=== PATIENT | female | born 1965 | race Caucasian/White ===

== ENCOUNTER 2020-01-15 08:39 | Emergency (ER) | payer BC, SELFPAY ==
--- NOTE | ~2020-01-15 | XR_ITS ---
EXAMINATION: XR G tube evaluation w imaging DATE: 01/15/2020 10:08 INDICATION: Gastrostomy tube placement. TECHNIQUE: A supine view of the abdomen was obtained. COMPARISON: Abdomen radiographs 03/10/2019, CT abdomen and pelvis 11/03/2018 FINDINGS: There is gaseous distention of the sigmoid colon. The small bowel is normal in caliber. The re is a gastrostomy tube in expected position. There is contrast in the tube and in the stomach. IMPRESSION: 1. Gastrostomy tube in expected position. 2. Chronic versus recurrent gaseous distention of the sigmoid colon, consistent with adynamic ileus o r obstruction such as volvulus. Reviewed, dictated and finalized at location [facility]. IMPRESSION: 1. Gastrostomy tube in expected position. 2. Chronic versus recurrent gaseous distention of the sigmoid colon, consistent with adynamic ileus or obstruction such as volvulus.
[2020-01-15 08:55] VITALS: BP 158/109; PULSE 78; RESP 12; TEMP 36.4; O2SAT 99
--- NOTE | 2020-01-15 10:48 | PC.NURSE ---
Pt. family refusing ct scan and blood work and would like to be discharged. EDP aware.
--- NOTE | 2020-01-15 10:50 | ED.GENADULT ---
HPI - General Adult General Chief complaint: Unspecified Stated complaint: peg tube displacement Time Seen by Provider: 01/15/20 09:14 Source: family ( check) Mode of arrival: wheelchair Limitations: other ([place]'s disease) History of Present Illness HPI narrative: Patient presents via her with chief complaint of dislodged PEG tube that was noticed this morning by patient's caregiver. Patient has been reports that she has otherwise been taking feeds appropriately before this placement and has not had any abnormal symptoms. He states that she has come out abdominal bloating that is because she is due for enema today. Patient's is her POA and denies any other concerns. Related Data Allergies Allergy/AdvReac Type Severity Reaction Status Date / Time No Known Allergies Allergy Verified 09/18/19 09:12 Review of Systems Review of Systems: Narrative: CONSTITUTIONAL: Denies fever, chills, or sweats. EYES: Denies visual changes, redness, or discharge. ENT: Denies rhinorrhea, congestion, sore throat, or otalgia. CARDIOVASCULAR: Denies chest pain, palpitations, or edema. RESPIRATORY: Denies cough or dyspnea. GASTROINTESTINAL: PEG tube displacement denies abdominal pain, nausea, vomiting, or diarrhea. GENITOURINARY: Denies dysuria or hematuria. SKIN: Denies rash or itching. MUSCULOSKELETAL: Denies back pain, myalgia, or joint pain NEUROLOGIC: Denies headache, numbness, dizziness, or weakness. PSYCHIATRIC: Denies anxiety or depression. [facility] Past Medical History Medical History (Updated 01/15/20 @ 10:54 by Thom Williamson PA-C) History of [place]'s chorea Surgical History Surgical History History of endometrial ablation Family History Family History Mother Family history of [place]'s chorea Social History Social History Smoking status: Never smoker Second hand tobacco smoke exposure: No Alcohol intake: current Gender identity (if verbalized by the patient): Female Exam Narrative: Exam Narrative: GENERAL: Well groomed, well-nourished. HEAD: Normocephalic, atraumatic. EYES: PERRLA and EOMI. ENT: Nares clear, no rhinorrhea or epistaxis. Mucous membranes moist. Bilateral TMs pearly deleon nonbulging NECK: Supple. No adenopathy or masses. No vertebral tenderness or loss of ROM. CHEST: Clear to auscultation. No respiratory distress. No wheezes rales or rhonchi HEART: Regular rate and rhythm. Normal peripheral pulses. ABDOMEN: Soft, nontender, mild distention, hyperactive active bowel sounds in all quadrants. No bruises noted. EXTREMITIES: Bilateral upper extremities contracted. No acute changes in ROM. No edema. SKIN: Warm, dry, no rash. NEURO: Speech is not intelligible. alert and awake. Course Vital Signs Vital signs: Vital Signs Temperature 97.5 F L 01/15/20 08:55 Pulse Rate 78 01/15/20 08:55 Respiratory Rate 12 01/15/20 08:55 Blood Pressure 158/109 H 01/15/20 08:55 Pulse Oximetry 99 01/15/20 08:55 Temperature 97.5 F L 01/15/20 08:55 Pulse Rate 73 01/15/20 11:00 Respiratory Rate 18 01/15/20 11:00 Blood Pressure 156/97 H 01/15/20 11:00 Pulse Oximetry 99 01/15/20 11:00 Procedures Other Procedure Procedure 1: Other Procedure: PEG tube site and lower abdomen cleaned with chlorhexidine wipes. Lubrication applied to the PEG tube and it was inserted without resistance and balloon to be held in place. Patient tolerated procedure well. PEG tube taped in place to patient abdomen. Imaging obtained to confirm placement. Medical Decision Making MDM Narrative Medical decision making narrative: On patient's imaging to confirm PEG tube placement there was distention noted. Consulted with radiologist who recommends CT with contrast so he can compare to the CT per
[2020-01-15 11:00] VITALS: BP 156/97; PULSE 73; RESP 18; O2SAT 99
--- NOTE | 2020-01-15 11:02 | PC.NURSE ---
Pt. left against medical advice. EDP spoke with patient POA and they have no further questions.
== END 2020-01-15 11:02 | disposition left against medical advice (07) ==
PROVIDERS: Emergency Provider Emergency Medicine; PCP Family Medicine
DX: K94.23 Gastrostomy malfunction (principal); G10 Huntington's disease
CPT/HCPCS: 49465; 99284

== ENCOUNTER 2020-02-16 08:34 | Emergency (ER) | payer BC, SELFPAY ==
--- NOTE | ~2020-02-16 | CT_ITS ---
EXAMINATION: CT abdomen pelvis wo con DATE: 02/16/2020 10:28 INDICATION: Possible extravasation of contrast material following gastrostomy tube placement TECHNIQUE: Computed tomography (CT) of the abdomen and pelvis was performed without intravenous contr ast. Automated exposure control and iterative reconstruction technique were employed. Exam dose: 414 .27 mGy-cm total exam DLP. COMPARISON: 02/16/2020 KUB FINDINGS: Gastrostomy tube is situated within the body of the stomach and there is contrast material within the stomach and small bowel but no extravasation. Upon review of the earlier plain radiograph, the abdomen is missed marked and with left marker on the right side of the abdomen. Incidentally noted is a nonobstructing small left renal calculus. IMPRESSION: Satisfactory position of gastrostomy tube within stomach and no extravasated contrast ma terial Reviewed, dictated and finalized at [facility]. Reviewed, dictated and finalized at location A. ING CLERK IMPRESSION: Satisfactory position of gastrostomy tube within stomach and no ex travasated contrast material
--- NOTE | ~2020-02-16 | XR_ITS ---
XR G tube replacement w image DATE: 02/16/2020 09:38 INDICATION: Gastrostomy tube replacement TECHNIQUE: Portable supine AP exposure following injection of contrast material through a recently pl aced gastrostomy tube COMPARISON: 03/10/2019 KUB 01/15/2020 gastrostomy tube 11/04/2018 CT abdomen pelvis FINDINGS: Gastrostomy tube overlies the medial right upper abdomen. Radiopaque contrast material is n oted within the gastric lumen and duodenal lumen. There is however evidence of some apparent extravas ated contrast material in the medial right superior abdomen extending superior to the stomach and duo denum. IMPRESSION: Suggestion of extravasation of contrast material following gastrostomy tube placement Reviewed, dictated and finalized at [facility]. Reviewed, dictated and finalized at location A. ESIS NURSE IMPRESSION: Suggestion of extravasation of contrast material following gastrost ariela tube placement
[2020-02-16 08:40] VITALS: PULSE 76; RESP 20; TEMP 36.8; O2SAT 99
--- NOTE | 2020-02-16 09:59 | ED.GENADULT ---
HPI - General Adult General Chief complaint: Unspecified Stated complaint: Peg tube came out Time Seen by Provider: 02/16/20 08:56 History of Present Illness HPI narrative: Patient is a 54-year-old female who presents to the ER for feeding tube dislodgment. The fluid came out of the balloon and the tube was excellently pulled out 1/2 hours prior to arrival. No other complaints. Patient's has placed a bandage over the stoma. Placed several years ago and very mature. Related Data Allergies Allergy/AdvReac Type Severity Reaction Status Date / Time No Known Allergies Allergy Verified 02/16/20 08:44 Review of Systems Review of Systems: ROS unobtainable: Yes unobtainable due to medical condition PMFSH Past Medical History Medical History (Updated 02/16/20 @ 11:56 by Good Young MD) History of [place]'s chorea Surgical History Surgical History History of endometrial ablation Family History Family History Mother Family history of Molly's chorea Social History Social History Smoking status: Never smoker Second hand tobacco smoke exposure: No Alcohol intake: current Gender identity (if verbalized by the patient): Female Exam Narrative: Exam Narrative: GENERAL: Chronically ill-appearing, well-nourished, and in no acute distress. HEAD: Normocephalic, atraumatic. CHEST: Clear to auscultation. No respiratory distress. HEART: Regular rate and rhythm. Normal peripheral pulses. ABDOMEN: Soft, nontender, nondistended. Stoma site in left upper abdomen. EXTREMITIES: Contractures of the upper and lower extremities. NEURO: Patient awake and alert. Neurologic baseline. Chronic deficits from [place]'s chorea Course Reevaluation(s) Reevaluation #1: Discussed results with patient's and patient. Will obtain noncontrast CT scan to further evaluate extravasation of fluid. Patient's abdomen is soft and nontender and she is in no distress. Date: 02/16/20 Time: 10:00 Reevaluation #2: No extravasation of contrast. Contacted by radiology. Discharge home. Date: 02/16/20 Time: 11:54 Vital Signs Vital signs: Vital Signs Temperature 98.2 F 02/16/20 08:40 Pulse Rate 76 02/16/20 08:40 Respiratory Rate 20 02/16/20 08:40 Pulse Oximetry 99 02/16/20 08:40 Temperature 98.2 F 02/16/20 08:40 Pulse Rate 76 02/16/20 08:40 Respiratory Rate 20 02/16/20 08:40 Pulse Oximetry 99 02/16/20 08:40 Procedures Other Procedure Procedure 1: Other Procedure: G-tube placed at bedside 20 [employer] [employer] feeding tube could not passed through the stoma. A 16 [place] Kangaroo G-tube was able to pass. There was a area of scar tissue that has had to move through with slight pressure. Patient tolerated well. Postplacement imaging shows potential extravasation Gastrografin. Discussed with radiology and we will obtain a noncontrast CT scan. Medical Decision Making Vital Signs Vital Signs: Vital Signs Temperature 98.2 F 02/16/20 08:40 Pulse Rate 76 02/16/20 08:40 Respiratory Rate 20 02/16/20 08:40 Pulse Oximetry 99 02/16/20 08:40 Temperature 98.2 F 02/16/20 08:40 Pulse Rate 76 02/16/20 08:40 Respiratory Rate 20 02/16/20 08:40 Pulse Oximetry 99 02/16/20 08:40 Imaging Data Radiologist's impression: ITS Impressions Imaging G-Tube Change 02/16/20 09:46 IMPRESSION: Suggestion of extravasation of contrast material following gastrostomy tube placement Abdomen/Pelvis CT 02/16/20 11:07 IMPRESSION: Satisfactory position of gastrostomy tube within stomach and no extravasated contrast material Discharge Plan Discharge Clinical Impression: Gastrostomy tube dysfunction Patient Disposition: Home, Self-Care Condition: Stable Additi
== END 2020-02-16 12:06 | disposition home or self-care (01) ==
PROVIDERS: Emergency Provider Emergency Medicine; PCP Family Medicine
DX: Z43.1 Encounter for attention to gastrostomy (principal); G10 Huntington's disease
CPT/HCPCS: 49450; 74176; 99284

== ENCOUNTER → 2021-05-16 01:54 | Day surgery (SDC) | payer BC, SELFPAY ==
[2021-05-16 13:05] VITALS: BP 143/76; PULSE 73; RESP 20; TEMP 36.9; O2SAT 97
--- NOTE | 2021-05-16 14:26 | PM.HPGS ---
History of Present Illness History of Present Illness Consent: Risks, benefits, and alternatives of replacement of a questionably functioning G-tube have been discussed and questions answered. Patient agrees to proceed with procedure. Chief complaint: Replacement of G-tube Narrative: 05/16/2021 Lillian Pastrana is a 55 year old female and she presents with her who provides her care. He has noticed some discoloration in the balloon port on her current kangaroo gastrostomy tube. It still was functioning okay but he was interested in knowing how often this needs to be replaced as this one is at least a year old. Pt is sitting in her wheelchair during the examination and is unable to verbalize d/t [place]'s Chorea. Her states her weight has been steady over the last 6 mo.. He does not have any new complaints or concerns for the pt other than the above. Patient makes some grunting sounds and waves her hands to some degree but otherwise cannot answer questions. Review of Systems Review of Systems: All systems reviewed & are unremarkable except as noted in HPI and below Constitutional: Constitutional: Reports as per HPI, Denies chills and Denies fever(s) Cardiovascular: Cardiovascular: Denies chest pain and Denies dyspnea Respiratory: Respiratory: Reports no additional respiratory complaints and Denies dyspnea Gastrointestinal: Gastrointestinal: Reports as per HPI and Denies bloating Musculoskeletal: Musculoskeletal: Reports no additional musculoskeletal complaints Neurologic: Denies memory loss Psychiatric: Psychiatric: Denies anxiety and Denies memory loss [facility] Past Medical History Medical History (Updated 05/16/21 @ 14:32 by Rocky Bear MD) History of [place]'s chorea Surgical History Surgical History History of endometrial ablation History of gastrostomy tube placement Approximately 2018 Family History Family History Mother Family history of [place]'s chorea Social History Social History Smoking status: Never smoker Second hand tobacco smoke exposure: No Alcohol intake: current Living arrangements: with family Gender identity (if verbalized by the patient): Female Spiritual care concerns: No Meds Home Medications and Allergies Home Medications Medication Instructions Recorded Confirmed Type zinc gluconate 50 mg tablet 50 mg PO QID #360 tablet 10/27/19 03/06/21 Rx potassium chloride 20 mEq/15 mL 20 meq PO BID #3800 ml 06/17/20 03/06/21 Rx oral liquid nitrofurantoin macrocrystal 50 mg See Rx Instructions .ROUTE 08/26/20 03/06/21 Rx capsule .COMPLEX #90 cap trazodone 100 mg tablet See Rx Instructions .ROUTE 08/26/20 03/06/21 Rx .COMPLEX #180 tablet Allergies Allergy/AdvReac Type Severity Reaction Status Date / Time No Known Allergies Allergy Verified 05/16/21 13:47 Vital Signs Vital Signs - 24 hr 05/16/21 13:05 Temperature 36.9 C Pulse Rate 73 Respiratory Rate 20 Blood Pressure 143/76 H Pulse Oximetry 97 Exam Eyes: General: appearance normal, both eyes and all related structures Sclera: sclerae normal Pupils: Equal, round and reactive pupils present EOM: EOMs intact bilaterally Neck: Neck: normal visual inspection, no lymphadenopathy, trachea midline and supple Resp: Effort & Inspection: normal respiratory effort and able to speak in complete sentences Auscultation: clear to auscultation bilaterally Cardio: Jugular venous distension: no JVD Rate: regular rate Rhythm: regular rhythm GI: Inspection: normal to inspection GI Palp: Yes Soft to palpation, No Tenderness to palpation present (GI), No Guarding due to palpation present (GI) and No Palpable mass present Auscultation: normal bowel sounds Rectal Exam: deferred Other: There is a thin Gastrostomy t
--- NOTE | 2021-05-20 19:55 | P.OP_ITS ---
Procedure Note - Detailed Date of Procedure 05/16/21 Pre-op Diagnosis 1. Need for Replacement of G-tube 2.[place]'s Post-op Diagnosis same Procedure Performed Replacement of G-Tube Surgeon Rocky Bear MD Communications Maintainer GI nurse Anesthesia none Indications age of the previous tube and ? of tube baloon dysfunction. Findings Normal appreaing soft clear silicon G-tube exiting the LUQ. Description of Procedure The patient was sitting in her wheelchair in the GI lab. GI lab nurse caring for helped me. First I had a discussion with her and we looked at the current G-tube. It appeared that there was some dark discoloration of the balloon lumen near the distal end of the tube but otherwise it looked to be intact and he had been using it. I answered his questions about how to care for it and I showed him the new tube that we are going to place. Time-out was performed confirming that we were changing a gastrostomy tube Following this I used a syringe to deflate the balloon on the current kangaroo gastrostomy tube and with some shucks under the patient's ostomy with her tilted back a little bit in her wheelchair we carefully let the balloon down and removed the indwelling G-tube with simple traction, pulling the previous G-tube out. I then placed a 4 x 4 over the opening and held slight pressure to keep gastric contents from coming out. Following this I lubricated the new tube. I checked the balloon with 20 cc of saline and it inflated fine and did not leak. We then again lubricated the end of the new G- tube and inserted it in the current ostomy site and advanced it to about 6 cm. The balloon was inflated with 20 cc of fluid and then pulled back and the securing ring slid down over the G-tube to the skin level, pulling the balloon up to the inside level of the stomach securely without too much tension. We then used a 4 x 4 to carefully wipe clean the skin surrounding the G-tube site and then plugged the two ports on the G-tube. I discussed with the patient's the care of the new G-tube which is very similar to the old one. We also provided him with instruction sheet from the packaging on the new kangaroo G-tube which she can read for further reference. The new one is a 16 [place] kangaroo catheter with a main channel and a side port. He states his very similar to the 1 that was present and will be able to use it without difficulty. They will call the office if they have trouble. I told him the probably if there is no problems it can easily be left for about 2 years but may be changes every 2 years as the balloon tends to degrade over that time with this gastric acid and then may deflate making it increased risk of dislodgement. However, informed him that if the dislodge is is not the end of the world they just need to be in within 24 hours to have a new tube placed before the ostomy tries to seal itself. was thankful for the visit and was happy with the new tube. The GI nurse help them redressed the area in get the patient's that sat back up in her wheelchair and they exited the GI lab soon after that. Patient tolerated the procedure well. Implants A new 16 Fr. Kangaroo dual lumen G-tube. Estimated Blood Loss 0 Drains No Packing No Pathology none sent Complications No immediate complications Condition stable Disposition other (GI lab to home.)
== END ==
PROVIDERS: PCP Family Medicine; Visit Provider Surgery
PROC: (CPT 49440; principal; 2021-05-16 14:30)
DX: Z43.1 Encounter for attention to gastrostomy (principal); Z53.9 Procedure and treatment not carried out, unspecified reason
CPT/HCPCS: 99212; G0463

== ENCOUNTER 2022-05-26 10:03 | Emergency (ER) | payer BC, SELFPAY ==
--- NOTE | ~2022-05-26 | XR_ITS ---
EXAMINATION: XR G tube evaluation w imaging DATE: 05/26/2022 11:31 INDICATION: Gastrostomy tube replacement. TECHNIQUE: A supine view of the abdomen was obtained. COMPARISON: Abdomen radiograph 02/16/2020, CT abdomen and pelvis 02/16/2020 FINDINGS: There is gaseous distention of the sigmoid colon. The small bowel is normal in caliber. The gastrostomy tube is in expected position in the body of the stomach. There is contrast in the tube a nd in the stomach and proximal duodenum. IMPRESSION: 1. Gastrostomy tube in expected position. 2. Chronic gaseous distention of the sigmoid colon, likely adynamic ileus. Reviewed, dictated and finalized at location A. [employer]
[2022-05-26 10:03] VITALS: BP 159/106; PULSE 89; RESP 16; TEMP 36.2; O2SAT 97
--- NOTE | 2022-05-26 10:31 | ED.GENADULT ---
HPI - General Adult General Chief complaint: Unspecified Stated complaint: G tube displaced Time Seen by Provider: 05/26/22 10:07 History of Present Illness HPI narrative: Pt presents after pulling out g tube about an hour ago. Pt has no other issues or complaints per family. Pt not verbal and all history through EMS and family. Related Data Allergies Allergy/AdvReac Type Severity Reaction Status Date / Time No Known Allergies Allergy Verified 04/09/22 03:50 Review of Systems Review of Systems: All systems reviewed & are unremarkable except as noted in HPI and below PMFSH Past Medical History Medical History History of [place]'s chorea Surgical History Surgical History History of endometrial ablation History of gastrostomy tube placement Approximately 2018 Family History Family History Mother Family history of [place]'s chorea Social History Social History Smoking status: Never smoker Second hand tobacco smoke exposure: No Alcohol intake: current Living arrangements: with family Gender identity (if verbalized by the patient): Female Spiritual care concerns: No Exam Const: General: cooperative Chest: Chest palpation & inspection: normal inspection of the chest Resp: Effort & Inspection: normal respiratory effort Auscultation: clear to auscultation bilaterally Cardio: Rate: regular rate Rhythm: regular rhythm GI: Inspection: normal to inspection and other (g tube site open and non erythmatous) GI Palp: No abdominal tenderness Auscultation: normal bowel sounds Skin: General skin exam: normal color Lesions: no lesions Rashes: no rashes Wounds: no wounds Course Vital Signs Vital signs: Vital Signs Temperature 97.2 F L 05/26/22 10:03 Pulse Rate 89 05/26/22 10:03 Respiratory Rate 16 05/26/22 10:03 Blood Pressure 159/106 H 05/26/22 10:03 Pulse Oximetry 97 05/26/22 10:03 Temperature 97.2 F L 05/26/22 10:03 Pulse Rate 89 05/26/22 10:03 Respiratory Rate 16 05/26/22 10:03 Blood Pressure 159/106 H 05/26/22 10:03 Pulse Oximetry 97 05/26/22 10:03 Procedures Other Procedure Procedure 1: Other Procedure: g tube easily inserted in opening and cuff inflated with 5 ml air. placement confirmed with gastrografin x ray Medical Decision Making Vital Signs Vital Signs: Vital Signs Temperature 97.2 F L 05/26/22 10:03 Pulse Rate 89 05/26/22 10:03 Respiratory Rate 16 05/26/22 10:03 Blood Pressure 159/106 H 05/26/22 10:03 Pulse Oximetry 97 05/26/22 10:03 Temperature 97.2 F L 05/26/22 10:03 Pulse Rate 89 05/26/22 10:03 Respiratory Rate 16 05/26/22 10:03 Blood Pressure 159/106 H 05/26/22 10:03 Pulse Oximetry 97 05/26/22 10:03 Discharge Plan Discharge Clinical Impression: Gastrojejunostomy tube dislodgement Patient Disposition: Home, Self-Care Condition: Stable Instructions: Antibiotic Form, How to Use and Care for Your PEG Tube (ED) Prescriptions: No Action nitrofurantoin macrocrystal 50 mg capsule See Rx Instructions .ROUTE .COMPLEX Qty: 90 3RF Dose Instruction: TAKE 1 CAPSULE DAILY Rx Instructions: TAKE 1 CAPSULE DAILY trazodone 100 mg tablet See Rx Instructions .ROUTE .COMPLEX Qty: 180 3RF Dose Instruction: TAKE 1 TABLET TWICE A DAY Rx Instructions: TAKE 1 TABLET TWICE A DAY potassium chloride 20 mEq/15 mL liquid 20 meq PO BID Qty: 3800 2RF zinc gluconate 50 mg tablet 50 mg PO QID Qty: 360 0RF Follow-up/Referrals: Kerry Roman DO [Primary Care Provider] -
== END 2022-05-26 13:31 | disposition home or self-care (01) ==
PROVIDERS: Emergency Provider Emergency Medicine; PCP Family Medicine
DX: Z43.1 Encounter for attention to gastrostomy (principal); G10 Huntington's disease
CPT/HCPCS: 49465; 99284

== ENCOUNTER 2022-05-30 08:30 | Emergency (ER) | payer BC, SELFPAY ==
--- NOTE | ~2022-05-30 | XR_ITS ---
EXAMINATION: XR G tube replacement w image DATE: 05/30/2022 09:24 INDICATION: Confirmation of G-tube positioning TECHNIQUE: Portable AP view of the abdomen was obtained following injection of 45 mL Omn[address]-soluble contrast into the percutaneous gastrostomy tube. COMPARISON: 05/26/2022 and 03/14/2019 FINDINGS: Percutaneous gastrostomy tube bulb and dependently layering contrast in the distal body of the stomac h. No evident contrast extravasation. Gaseous distention of the colon throughout the abdomen. No dila amrit loops of gas-filled small bowel. IMPRESSION: 1. Percutaneous gastrostomy tube bulb end injected contrast in the distal body of the stomach. Reviewed, dictated and finalized at location A. NFORMAT[employer] SOFTWARE ENGINEER
[2022-05-30 08:40] VITALS: BP 141/89; PULSE 83; RESP 20; TEMP 36.9; O2SAT 98
--- NOTE | 2022-05-30 09:13 | ED.GENADULT ---
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 Related Data Allergies Allergy/AdvReac Type Severity Reaction Status Date / Time No Known Allergies Allergy Verified 05/30/22 08:45 Review of Systems Review of Systems: ROS unobtainable: Yes unobtainable due to medical condition [facility] Past Medical History Medical History History of Molly's chorea Surgical History Surgical History History of endometrial ablation History of gastrostomy tube placement Approximately 2017 Family History Family History Mother Family history of Assumption's chorea Social History Social History Smoking status: Never smoker Second hand tobacco smoke exposure: No Alcohol intake: current Living arrangements: with family Gender identity (if verbalized by the patient): Female Spiritual care concerns: No Exam Narrative: APPEARANCE: No distress HEAD: normocephalic, atraumatic. NECK: Supple. No adenopathy, no masses. RESPIRATORY: Airway patent, respirations nonlabored. Clear to auscultation bilaterally, no rales, rhonchi, wheezing. CARDIOVASCULAR: Regular rate and rhythm without murmurs rubs or gallops. ABDOMINAL: Soft, nontender, nondistended, normal bowel sounds. Well-appearing G-tube site MUSCULOSKELETAL: Moves all extremities. NEURO: Alert. At patient's baseline SKIN: Warm, dry. Normal Color Course Course Emergency Course: Patient's G-tube was a 16 Citizen Of [place] G-tube. This was replaced with an identical model. X-ray confirmed proper placement. Patient family were updated on the results of the imaging and they were comfortable to plan for discharge and close follow-up. Vital Signs Vital signs: Vital Signs Temperature 98.4 F 05/30/22 08:40 Pulse Rate 83 05/30/22 08:40 Respiratory Rate 20 05/30/22 08:40 Blood Pressure 141/89 H 05/30/22 08:40 Pulse Oximetry 98 05/30/22 08:40 Oxygen Delivery Room Air 05/30/22 08:40 Temperature 98.4 F 05/30/22 08:40 Pulse Rate 83 05/30/22 08:40 Respiratory Rate 20 05/30/22 08:40 Blood Pressure 141/89 H 05/30/22 08:40 Pulse Oximetry 98 05/30/22 08:40 Oxygen Delivery Room Air 05/30/22 08:40 Procedures Feeding Tube Replacement Feeding Tube #1: Feeding Tube Placement Time: 09:13 Type of Tube: gastrostomy Insertion Site Prior to Procedure: clean Tube Used for Reinsertion: Bard Citizen [place] Tube Size (F): 16 Balloon size (mL): 5 Verification of Placement: KUB Tube Secured by: tape/dressing Patient Tolerated Procedure: well and no complications Medical Decision Making Vital Signs Vital Signs: Vital Signs Temperature 98.4 F 05/30/22 08:40 Pulse Rate 83 05/30/22 08:40 Respiratory Rate 20 05/30/22 08:40 Blood Pressure 141/89 H 05/30/22 08:40 Pulse Oximetry 98 05/30/22 08:40 Oxygen Delivery Room Air 05/30/22 08:40 Temperature 98.4 F 05/30/22 08:40 Pulse Rate 83 05/30/22 08:40 Respiratory Rate 20 05/30/22 08:40 Blood Pressure 141/89 H 05/30/22 08:40 Pulse Oximetry 98 05/30/22 08:40 Oxygen Delivery Room Air 05/30/22 08:40 Imaging Data Radiologist's impression: Impressions Imaging G-Tube Change 05/30/22 09:31 IMPRESSION: 1. Percutaneous gastrostomy tube bulb end injected contrast in the distal body of the stomach. Discharge Plan Discharge Clinical Impression: Gastrostomy tube dysfunction Patient Disposition: Karen
--- NOTE | 2022-05-30 09:18 | PC.NURSE ---
New feeding tube placed in by EDP.
== END 2022-05-30 09:49 | disposition home or self-care (01) ==
PROVIDERS: Emergency Provider Emergency Medicine; PCP Family Medicine
DX: T85.528A Displacement of other gastrointestinal prosthetic devices, implants and grafts, initial encounter (principal); G10 Huntington's disease; Y83.3 Surgical operation with formation of external stoma as the cause of abnormal reaction of the patient, or of later complication, without mention of misadventure at the time of the procedure
CPT/HCPCS: 49450; 99284

== ENCOUNTER 2022-11-08 20:15 | Emergency (ER) | payer BC, SELFPAY ==
--- NOTE | ~2022-11-08 | XR_ITS ---
EXAMINATION: [id number] INDICATION: PEG tube placement check TECHNIQUE: Portable supine view the abdomen is obtained. 50 cc of Omnipaque contrast were injected th rough the tube. COMPARISON: None available FINDINGS: The PEG tube is in the stomach. Contrast injected through the PEG tube is seen in the stoma ch and proximal duodenum. A moderate volume of colonic stool is present. There is chronic gaseous dis tention of the colon. IMPRESSION: 1. PEG tube in the stomach. Reviewed, dictated and finalized at location F. IMPRESSION: 1. PEG tube in the stomach.
[2022-11-08 20:19] VITALS: BP 152/100; PULSE 74; RESP 22; TEMP 36.2; O2SAT 95
--- NOTE | 2022-11-08 21:02 | ED.GENADULT ---
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 Patient's was giving her tube feeds around 7:30 PM tonight when the PEG tube fell out. She has had a PEG tube for about 5 years, last replaced about 6 months ago. The tube is managed by her primary doctor. The alternates antibiotic ointment and antifungals around the tube site. She has no other issues per . No fever or chills. Normal bowel function for her. Related Data Allergies Allergy/AdvReac Type Severity Reaction Status Date / Time No Known Allergies Allergy Verified 07/29/22 14:14 Review of Systems Review of Systems: ROS unobtainable: Yes unobtainable due to medical condition (non verbal) PMFSH Past Medical History Medical History History of Molly's chorea Surgical History Surgical History History of endometrial ablation History of gastrostomy tube placement Approximately 2018 Family History Family History Mother Family history of Molly's chorea Social History Social History Smoking status: Never smoker Second hand tobacco smoke exposure: No Alcohol intake: current Living arrangements: with family Gender identity (if verbalized by the patient): Female Spiritual care concerns: No Exam Narrative: GENERAL: Chronically ill appearing. HEAD: Normocephalic, atraumatic. EYES: PERRLA and EOMI. ENT: Nares clear. Mucous membranes moist. NECK: Supple. CHEST: Clear to auscultation. No respiratory distress. HEART: Regular rate and rhythm. Normal peripheral pulses. ABDOMEN: Soft, nontender, nondistended. Site of G tube present in RUQ, clean, no erythema. EXTREMITIES: Bilateral upper and lower extremity contractures present SKIN: Warm, dry, no rash. Course Course Emergency Course: Chart review performed. Prior history of G tube, last dislodgement was in May of 2022, replaced here in the ED. Patient seen and evaluated. No acute distress. Chronically ill appearing. Will replace G tube and perform Gastrografin study. G tube replaced by myself at bedside without difficulty. Xray ordered. Vital Signs Vital signs: Vital Signs Temperature 97.2 F L 11/08/22 20:19 Pulse Rate 74 11/08/22 20:19 Respiratory Rate 22 H 11/08/22 20:19 Blood Pressure 152/100 H 11/08/22 20:19 Pulse Oximetry 95 11/08/22 20:19 Oxygen Delivery Room Air 11/08/22 20:19 Temperature 97.2 F L 11/08/22 20:19 Pulse Rate 74 11/08/22 20:19 Respiratory Rate 22 H 11/08/22 20:19 Blood Pressure 152/100 H 11/08/22 20:19 Pulse Oximetry 95 11/08/22 20:19 Oxygen Delivery Room Air 11/08/22 20:19 Procedures Feeding Tube Replacement Feeding Tube #1: Feeding Tube Placement Date: 11/08/22 Feeding Tube Placement Time: 21:10 Type of Tube: gastrostomy Insertion Site Prior to Procedure: clean Tube Used for Reinsertion: Bard Latvian Tube Size (F): 16 Balloon size (mL): 5 Verification of Placement: KUB and gastrografin injection Tube Secured by: tape/dressing Patient Tolerated Procedure: well Medical Decision Making Vital Signs Vital Signs: Vital Signs Temperature 97.2 F L 11/08/22 20:19 Pulse Rate 74 11/08/22 20:19 Respiratory Rate 22 H 11/08/22 20:19 Blood Pressure 152/100 H 11/08/22 20:19 Pulse Oximetry 95 11/08/22 20:19 Oxygen Delivery Room Air 11/08/22 20:19 Temperature 97.2 F L 11/08/22 20:19 Pulse Rate 74 11/08/22 20:19 Respiratory Rate 22 H 11/08
--- NOTE | 2022-11-08 21:17 | PC.NURSE ---
states pt pulled out PEG tube at 1930 and needs to have it re-inserted.
== END 2022-11-08 21:42 | disposition home or self-care (01) ==
PROVIDERS: Emergency Provider Student in an Organized Health Care Education/Training Program; PCP Family Medicine
DX: Z43.1 Encounter for attention to gastrostomy (principal); G10 Huntington's disease
CPT/HCPCS: 43762; 99283

== ENCOUNTER 2023-03-26 02:07 | Observation (INO) | payer BC, SELFPAY ==
[2023-03-26] VITALS (9 sets, daily range): BP systolic 100–163; BP diastolic 46–129; PULSE 75–132; RESP 18–30; TEMP 36.1–36.6; O2SAT 94–100
--- NOTE | 2023-03-26 03:12 | ED.RECABL ---
HPI - Recheck/Abnormal Lab/Rx General Chief Complaint: Recheck/Abnormal Lab/Rx Stated Complaint: DISLODGED G-TUBE Source: other (Caregiver) Limitations: other (Molly's disease) History of Present Illness HPI narrative: Patient is a 57-year-old female presents to the emergency department accompanied by her caregiver for G-tube dislodgement. Patient pulmonary G2 around midnight and was brought in for replacement of the G-tube. Patient has otherwise been in her normal state of health. No vomiting or fevers. Patient has had a G-tube in place for least the past 1 year and is a 16 Spanish. Related Data Home Medications Medication Instructions Recorded Confirmed ascorbate calcium (vitamin C) 500 500 mg feeding tube DAILY 03/26/23 03/26/23 mg tablet magnesium 200 mg tablet 400 mg feeding tube DAILY 03/26/23 03/26/23 nitrofurantoin macrocrystal 50 mg 50 mg feeding tube DAILY termite treater helper 03/26/23 03/26/23 capsule UTI polyethylene glycol 3350 17 17 g feeding tube DAILY 03/26/23 03/26/23 gram/dose oral powder (Miralax) trazodone 100 mg tablet 100 mg feeding tube BID 03/26/23 03/26/23 Allergies Allergy/AdvReac Type Severity Reaction Status Date / Time No Known Allergies Allergy Verified 07/29/22 14:14 Review of Systems Review of Systems: ROS unobtainable: Yes unobtainable due to medical condition [facility] Past Medical History Medical History History of Molly's chorea Surgical History Surgical History History of endometrial ablation History of gastrostomy tube placement Approximately 2018 Family History Family History (Updated 03/26/23 @ 06:49 by Kaley Berry RN) Mother No problems noted. Other Family history of Molly's chorea Social History Social History Smoking status: Never smoker Second hand tobacco smoke exposure: No Alcohol intake: unknown Substance use: unknown Substance use type: does not use Living arrangements: with family Gender identity (if verbalized by the patient): Female Spiritual care concerns: No Comments At time of signature, I have reviewed and agree with nursing past medical, surgical, social and family history unless otherwise noted. Please see the nursing chart for further information. There is no relevant family history pertinent to the presenting complaint. Exam Narrative: CONST: No acute distress. Well nourished. HENMT: Head is normocephalic and atraumatic. Moist mucous membranes. No posterior oropharynx erythema. EYES: No conjunctival icterus, injection, or pallor. PERRL. RESP: Normal respiratory effort. CTAB. CARDIO: Regular rate. Regular rhythm. 2+ DP and radial pulses bilaterally. GI: Nondistended. No tenderness to palpation. Soft. G-tube stoma site is without surrounding erythema or discharge or tenderness to palpation. SKIN: No rashes or lesions noted on exposed skin. NEURO: At baseline. EXTREM/MSK/BACK: No pedal edema. Course Vital Signs Vital signs: Vital Signs Temperature 98 F 03/26/23 02:13 Pulse Rate 78 03/26/23 02:13 Respiratory Rate 30 H 03/26/23 02:13 Blood Pressure 155/102 H 03/26/23 02:13 Pulse Oximetry 96 03/26/23 02:13 Oxygen Delivery Room Air 03/26/23 02:13 Temperature 97 F L 03/26/23 05:14 Pulse Rate 132 H 03/26/23 05:14 Respiratory Rate 26 H 03/26/23 05:14 Blood Pressure 118/97 H 03/26/23 05:14 Pulse Oximetry 97 03/26/23 06:23 Oxygen Delivery Room Air 03/26/23 06:23 MDM - Recheck/Abnormal Lab/Rx MDM Narrative Medical decision making narrative: Patient presents with the above complaint. Physical examination as noted above. Plan discussed: Replace the G-tube with a 16 Spanish as the patient already has a 16 Spanish that was in place. Attempted replacement of 16 Spanish Crowell S
[2023-03-26 04:50] LABS: Basophils Absolute Auto 0.1 K/mm3 (0.0-0.1); Basophils Percent Auto 0.5 % (0.2-1.2); Eosinophils Absolute Auto 0.2 K/mm3 (0-0.3); Hematocrit 40.6 % (37.0-47.0); Hemoglobin 12.8 g/dL (12.0-15.0); Immature Granulocyte Absolute 0.04 K/mm3 (0.00-0.031); Immature Granulocyte Percent A 0.4 % (0-0.5); Lymphocytes Absolute Auto 2.75 K/mm3 (0.9-3.2); Lymphocytes Percent Auto 28.5 % (18.3-44.2); Mean Corpuscular HGB Conc 31.5 g/dl (32-36); Mean Corpuscular Hemoglobin 28.8 pg (26-34); Mean Corpuscular Volume 91.2 fl (80-100); Mean Platelet Volume 10.7 fl (7.4-10.4); Monocytes Absolute Auto 0.7 K/mm3 (0.1-0.6); Monocytes Percent Auto 7.6 % (2.6-8.5); Neutrophils Absolute Auto 5.9 K/mm3 (1.3-6.7); Platelet Count Result 411 k/mm3 (150-375); Red Blood Count 4.45 M/mm3 (4.2-5.4); Red Cell Distribution Width 13.1 % (11.5-14.5); White Blood Count 9.6 K/mm3 (4.5-10.0)
[2023-03-26 05:09] LABS: Alanine Aminotransferase 95 U/L (6-35); Albumin Level 4.2 g/dL (3.5-5.1); Alkaline Phosphatase 151 U/L (38-126); Anion Gap 7 mmol/L (8-16); Aspartate Amino Transferase 48 U/L (14-36); Bilirubin,Total 0.8 mg/dL (0.2-1.3); Blood Urea Nitrogen 13 mg/dL (7-17); Calcium 9.7 mg/dL (8.4-10.2); Carbon Dioxide 30 mmol/L (22-30); Chloride 102 mmol/L (98-107); Estimated Glomerular Filt Rate > 60; Glucose 104 mg/dL (65-110); Potassium 4.3 mmol/L (3.4-5.0); Sodium 139 mmol/L (137-145)
--- NOTE | 2023-03-26 07:08 | PC.NURSE ---
Caregiver reports that patient uses Nutrent 2.0 and Nutrent 1.5 alternating. Currently uses Nutrent 2.0
[2023-03-26] MEDS: SODIUM CHLORIDE 0.9% IV 1,000 ML 125 ML IV CONT (07:26)
[2023-03-26 11:52] LABS: Prothrombin Time 13.8 Seconds (11.1-14.7)
--- NOTE | 2023-03-26 12:33 | WPDGICN ---
Assessment and Plan Assessment and plan (1) Dislodged gastrostomy tube: Code(s): T85.528A - Displacement of other gastrointestinal prosthetic devices, implants and grafts, initial encounter Status: Acute Assessment and Plan: Her G-tube came out last night. When she came to the emergency room stoma had already closed. They were not even able to insert a small gauge Mahmood catheter into the site. Explain to the family that she will need percutaneous gastrostomy tube placement similar to the initial when she had. A scar in the abdomen suggests that it was initially placed surgically but the family is not certain. 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 She is unable to communicate and speak for herself. Plan EGD/peg tube placement GI Consult Note Consult date/time: 03/26/23 12:33 HPI: Lillian Pastrana is a 57 year old female Unfortunately wheelchair-bound due to Molly's disease. She has a chronic indwelling gastrostomy tube which was last changed about 4 months ago. Last night it apparently fell out. She came to the ED. Physicians in our emergency room where unable to replace it with even a much smaller tube,because the stoma had closed. Review of Systems Review of Systems: All systems reviewed & are unremarkable except as noted in HPI and below PMFSH Past Medical History Medical History History of Kaycee's chorea Surgical History Surgical History History of endometrial ablation History of gastrostomy tube placement Approximately 2018 Family History Family History Mother No problems noted. Other Family history of Kaycee's chorea Social History Social History Smoking status: Never smoker Second hand tobacco smoke exposure: No Alcohol intake: unknown Substance use: unknown Substance use type: does not use Living arrangements: with family Gender identity (if verbalized by the patient): Female Spiritual care concerns: No Meds Home Medications and Allergies Home Medications Medication Instructions Recorded Confirmed Type zinc gluconate 50 mg tablet 50 mg PO QID #360 tabs 01/29/22 03/26/23 Rx Nutritional Supplement #1 ea 08/21/22 03/26/23 Rx potassium chloride 20 mEq/15 mL 20 meq (15 mL) PO BID #3,800 mL 11/03/22 03/26/23 Rx oral liquid ascorbate calcium (vitamin C) 500 500 mg feeding tube DAILY 03/26/23 03/26/23 History mg tablet magnesium 200 mg tablet 400 mg feeding tube DAILY 03/26/23 03/26/23 History nitrofurantoin macrocrystal 50 mg 50 mg feeding tube DAILY assisted 03/26/23 03/26/23 History capsule UTI polyethylene glycol 3350 17 17 g feeding tube DAILY 03/26/23 03/26/23 History gram/dose oral powder (Miralax) trazodone 100 mg tablet 100 mg feeding tube BID 03/26/23 03/26/23 History Allergies Allergy/AdvReac Type Severity Reaction Status Date / Time No Known Allergies Allergy Verified 03/26/23 13:26 Vital Signs Vital Signs - 24 hr 03/26/23 02:13 03/26/23 04:22 03/26/23 06:23 Temperature 36.6 C Pulse Rate 78 86 Respiratory Rate 30 H 19 Blood Pressure 155/102 H 100/82 Pulse Oximetry 96 97 97 Oxygen Delivery Room Air Room Air 03/26/23 05:14 Temperature 36.1 C L Pulse Rate 132 H Respiratory Rate 26 H Blood Pressure 118/97 H Pulse Oximetry Oxygen Delivery Exam Const: General: other ( Noncommunicative) Orientation/consciousness: patient obtunded Resp: Auscultation: clear to auscultation bilaterally Cardio: Rhythm: regular rhythm GI: Inspection: scar ( midline incision. Left upper quadrant stom
--- NOTE | 2023-03-26 12:38 | PM.SD2 ---
Same Day Admit/Disch: HPI History of Present Illness Chief complaint: G Tube Displacement Narrative: Lillian Pastrana is a 57 year old female accompanied by her caregiver admitted for G-tube dislodgement. Patient is otherwise in her normal state of health, no acute distress. She is non-verbal at baseline. She is alert and awake. Family at bedside denies vomiting or fevers. Patient has had a G-tube for about 6 years, last replaced approximately 1 year ago. ER was unable to advance and replace, GI consulted for PEG tube replacement and will plan to d/c after procedure as she has no other concerning findings at this time. GI cleared for d/c. [facility] Past Medical History Medical History History of Molly's chorea Surgical History Surgical History History of endometrial ablation History of gastrostomy tube placement Approximately 2018 Family History Family History Mother No problems noted. Other Family history of Beaver's chorea Social History Social History Smoking status: Never smoker Second hand tobacco smoke exposure: No Alcohol intake: unknown Substance use: unknown Substance use type: does not use Living arrangements: with family Gender identity (if verbalized by the patient): Female Spiritual care concerns: No Same Day Admit/Disch: Med Pre-admit Medications Home Medications Medication Instructions Recorded Confirmed Type zinc gluconate 50 mg tablet 50 mg PO QID #360 tabs 01/29/22 03/26/23 Rx Nutritional Supplement #1 ea 08/21/22 03/26/23 Rx potassium chloride 20 mEq/15 mL 20 meq (15 mL) PO BID #3,800 mL 11/03/22 03/26/23 Rx oral liquid ascorbate calcium (vitamin C) 500 500 mg feeding tube DAILY 03/26/23 03/26/23 History mg tablet magnesium 200 mg tablet 400 mg feeding tube DAILY 03/26/23 03/26/23 History nitrofurantoin macrocrystal 50 mg 50 mg feeding tube DAILY long term care social worker 03/26/23 03/26/23 History capsule UTI polyethylene glycol 3350 17 17 g feeding tube DAILY 03/26/23 03/26/23 History gram/dose oral powder (Miralax) trazodone 100 mg tablet 100 mg feeding tube BID 03/26/23 03/26/23 History Review of Systems Review of Systems ROS unobtainable: Yes unobtainable due to mental status Exam Narrative: CONST: No acute distress. Laying in bed with her eye open. HENMT: Head is normocephalic and atraumatic. Moist mucous membranes. No posterior oropharynx erythema. EYES: PERRLA. Conjunctiva clear. RESP: Normal respiratory effort. Lungs clear to auscultation. CARDIO: RRR. Pedal pulses present bilaterally. GI: BS present and active. Nondistended. No tenderness to palpation. Soft. G-tube stoma site is without surrounding erythema or discharge or tenderness to palpation. SKIN: No rashes or lesions noted on exposed skin. NEURO: At baseline. PSYCH: unable to assess, calm and appropriate DS: Data Data Completed and Pending Labs on day of discharge: Labs from last 24 hours 03/26/23 03/26/23 11:17 04:44 WBC 9.6 RBC 4.45 Hgb 12.8 Hct 40.6 MCV 91.2 MCH 28.8 MCHC 31.5 L RDW 13.1 Plt Count 411 H MPV 10.7 H Immature Gran % (Auto) 0.4 Neut % (Auto) 61.0 Lymph % (Auto) 28.5 [place] % (Auto) 7.6 Eos % (Auto) 2.0 Baso % (Auto) 0.5 Lymph # (Auto) 2.75 [place] # (Auto) 0.7 H Eos # (Auto) 0.2 Baso # (Auto) 0.1 Abs Immat Gran (auto) 0.04 H Absolute Neuts (auto) 5.9 Absolute Nucleated RBC 0.0 Nucleated RBC % 0.0 PT 13.8 INR 1.0 Sodium 139 Potassium 4.3 Chloride 102 Carbon Dioxide 30 Anion Gap 7 L BUN 13 Creatinine 0.40 L Estim Creat Clear Calc Not Reportable Estimated GFR > 60 Glucose 104 Calcium 9.7 Total Bilirubin 0.8 AST 48 H ALT 95 H Alkaline Phosphatase 151 H Total
[2023-03-26] MEDS: LACTATED RINGERS 1,000 ML 150 ML IV CONT (13:33)
[2023-03-26] MEDS: ceFAZolin 1 GM/NS 50 ML 1 GM/50 ML BAG IVPB (13:33)
--- NOTE | 2023-03-26 13:51 | PC.NURSE ---
To GI Lab per SARAH stinson intact. Report given to CATINA Mann.
--- NOTE | 2023-03-26 15:41 | PC.NURSE ---
Returned from OR per stretcher at 1540. Report received from CATINA Chen.
[2023-03-26] MEDS: POTASSIUM CHLORIDE 20 MEQ PACKET (FOR LIQUID) PO (15:49)
== END 2023-03-26 17:10 | disposition home or self-care (01) ==
LOC: ANHED 03:58 → ANH3MEDSUR 07:23
PROVIDERS: Internal Medicine Gastroenterology; Admitting Provider Internal Medicine; Emergency Provider Student in an Organized Health Care Education/Training Program; PCP Family Medicine; Visit Provider Hospitalist
PROC: 0DH63UZ Insertion of Feeding Device into Stomach, Percutaneous Approach (ICD-10-PCS; CPT 43246; principal; 2023-03-26 13:30)
DX: T85.528A Displacement of other gastrointestinal prosthetic devices, implants and grafts, initial encounter (principal); K21.01 Gastro-esophageal reflux disease with esophagitis, with bleeding; G10 Huntington's disease; Z79.899 Other long term (current) drug therapy
CPT/HCPCS: 36415; 43246; 80053; 85025; 85610; 99285; A9270; G0378; J0690; J2001; J2704; J7030; J7120

== ENCOUNTER 2024-07-23 08:15 | Inpatient (IN) | payer BC, SELFPAY ==
[2024-07-23] VITALS (33 sets, daily range): BP systolic 117–189; BP diastolic 58–171; PULSE 71–135; RESP 16–45; TEMP 36.6–37.1; O2SAT 91–97; BMI 21.9
--- NOTE | ~2024-07-23 | XR_ITS ---
EXAMINATION: [id number] Exam Date/Time: 07/23/2024 17:20 CDT HISTORY: POST THORACENTESIS Comparison: CT abdomen pelvis, same date; x-ray chest same date at 10:23 AM. RESULT: Lines, tubes, and devices: None. Lungs and pleura: Opacification of the left hemithorax with shift of the mediastinum to the right. N odular opacity seen in the right lower lobe in the prior CT are not well seen radiographically. Cardiomediastinal silhouette: Stable. Other: No acute osseous or upper abdominal finding. IMPRESSION: Large left pleural effusion. Left lung atelectasis. No pneumothorax detected. Reviewed, dictated and finalized at location K.
--- NOTE | ~2024-07-23 | US_ITS ---
EXAMINATION: US thoracentesis DATE: 07/23/2024 18:28 INDICATION: Left pleural effusion TECHNIQUE: The procedure and its risks and benefits were discussed with the patient. Potential risks discussed included bleeding, infection, and pneumothorax. The patient understood the risks and agreed to proceed. The skin was prepped and draped in sterile fashion. 1% lidocaine was used for local anes thesia. Under ultrasound guidance, a 5 Fr catheter with trochar was advanced into the left pleural ef fusion. Fluid was aspirated. The catheter was removed, and a dressing was applied. There were no imme diate complications. FINDINGS: Ultrasound images demonstrate a large complex left pleural effusion and the catheter within the fluid and multiple internal septations. IMPRESSION: 1. Successful ultrasound-guided thoracentesis yielding 250 mL of yellowish fluid. Reviewed, dictated and finalized at location A. IMPRESSION: 1. Successful ultrasound-guided thoracentesis yielding 250 mL of yellowish flu id.
--- NOTE | ~2024-07-23 | CT_ITS ---
CT abdomen pelvis w con Ordering provider: Siobhan Duenas MD History: 58 years Female with . Abdominal pain, distension . Comparison: February 16, 2020 Technique: CT abdomen and pelvis with IV and without oral contrast. Automated exposure control and it erative reconstruction technique were employed. The dose-length product was 540.60 mGy-cm. 100 mL Omn ipaque 350 was given IV. Findings: VISUALIZED LOWER CHEST: A large left pleural effusion with atelectatic changes in the lung and elevat ion of the heart to the right are noted. Nodule in the right lower lobe laterally is seen measuring 1 .4 cm. 3 months follow-up CT is advised. UPPER ABDOMINAL ORGANS: Liver: Normal. Gallbladder: Not well demonstrated. Spleen: Normal. Stomach/duodenum: Gastrostomy is seen in the stomach. Air is distending the stomach. Pancreas: Normal. Adrenals: Normal. Kidneys: Normal. PELVIC ORGANS: The bladder shows thickened wall. Evaluation for cystitis advised. BOWEL AND MESENTERY: Colon: No evidence of diverticulitis. Significant fecal material is seen in the rectosigmoid area.. D istention of the colon with gases is noted more prominent in the sigmoid colon and the right side of the colon. Possibility of volvulus of the sigmoid colon cannot be excluded although less likely. Furt her evaluation advised..Appendix is not demonstrated. Small Bowel: Normal. No obstruction. Peritoneum/mesentery: No free air or free fluid. No mesenteric lymphadenopathy. RETROPERITONEUM: Normal aorta. No retroperitoneal lymphadenopathy. MUSCULOSKELETAL: Superficial soft tissues: The superficial soft tissues are normal. Bones: Age appropriate degenerative changes of the spine. Bilateral hip osteoarthritic changes. IMPRESSION: 1. No evidence of diverticulitis, appendicitis or definite bowel obstruction. Possibility of embolus in the sigmoid colon cannot be excluded. Further evaluation advised. 2. Fecal impaction seen in the rectosigmoid area. 3. Large left pleural effusion with atelectasis of the left lower lobe and lingula. Deviation of the heart to the right is noted. 4. Nodule in the right lower lobe measuring 1.[address] follow-up advised Dr. Duenas was notified with the result of the patient at 12:46 PM on July 23, 2024 Reviewed, dictated and finalized at location A. IMPRESSION: 1. No evidence of diverticulitis, appendicitis or definite bowel obstruction. Possibility of embolus in the sigmoid colon cannot be excluded. Further evaluat ion advised. 2. Fecal impaction seen in the rectosigmoid area. 3. Large left pleural effusion with atelectasis of the left lower lobe and kelly gula. Deviation of the heart to the right is noted. 4. Nodule in the right lower lobe measuring 1.[address] follow-up advi sed Dr. Duenas was notified with the result of the patient at 12:46 PM on July 23
--- NOTE | ~2024-07-23 | XR_ITS ---
XR chest 1V portable Ordering provider: Siobhan Duenas History: 58 years Female with . Fever . Comparison: March 18, 2017 FINDINGS: MEDIASTINUM: The cardiac silhouette is not enlarged. Deviation of the trachea to the right. LUNGS: No pneumothorax. . Opacification of the left hemithorax with deviation of the heart to the rig ht suggestive of pleural effusion with atelectasis versus pneumonia. OTHER: No free air under the diaphragm. IMPRESSION: Left pleural effusion with adjacent atelectasis versus pneumonia. Reviewed, dictated and finalized at location A.
--- OUTSIDE RECORDS SUMMARY | 2024-07-23 08:19 | XMS_ITS | Clinical Summary ---
Author Organization [facility] Address [address] [address] Phone Care Team Providers Care Fish And Wildlife Biologist Name Role Phone Unavailable Primary Care Provider Unavailabl e Allergies No known active allergies Medications trazodone HCl (TRAZODONE ORAL) by G Tube route 2 times daily. Two times at night Active L.acid/L.casei/ B.bif/B.kimber/FOS (PROBIOTIC BLEND ORAL) by G Tube route. supp Active multivitamin tablet 1 Tablet by G Tube route daily. supp Active ZINC GLUCONATE ORAL by G Tube route. supp Active potassium chloride 20 mEq/15 mL oral liquid 20 mEq by G Tube route daily. Supp, does not know dose Active OTHER by G Tube route daily. Nutrin 2.0, 1000ml/day partially at night 35ml/hr. Active nitrofurantoin (FURADANTIN) 25 mg/5 mL suspension 50 mg by G Tube route daily. Active ascorbic acid, vitamin C, 500 mg/5 mL Syrup Take 500 mg by mouth daily. Active magnesium citrate solution Take 296 mL by mouth one time only. Active Encounters Date Type Department Care Team Description 06/07/2024 External Device Data [facility] ABSTRACTION Provider, Abstract 05/30/2024 External Device Data [facility]CTION Provider, Abstract 05/30/2024 External Device Data [facility]STRACTION Provider, Abstract 05/27/2024 External Device Data [facility] Provider, Abstract 05/26/2024 External Device Data [facility] Provider, Abstract 05/23/2024 External Device Data [facility] Provider, Abstract 05/09/2024 External Device Data [facility]CTION Provider, Abstract from Last 3 Months Social History Tobacco Use Types Packs/Day Years Used Date Smoking Tobacco: Never Smokeless Tobacco: Never Alcohol Use Standard Drinks/Week Comments Not Currently 0 (1 standard drink = 0.6 oz pur e alcohol) Feeling Safe Answer Date Recorded Are you in a relationship wi th someone who hurts you emotionally and/or physically? 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 Gender Identity Not on file Sexual Orientation Not on file Last Filed Vital Signs Vital Sign Reading Time Taken Comments Blood Pressure 114/61 01/13/2024 12:52 PM CDT Pulse 80 01/13/2024 12:52 PM CDT Temperature 36.6 C (97.8 F) 01/13/2024 12:52 PM CDT Respiratory Rate 18 01/13/2024 12:52 PM CDT Oxygen Saturation 94% 01/13/2024 12:18 PM CDT Inhaled Oxygen Concentration - - Weight 52.8 kg (116 lb 6.4 oz) 01/13/2024 8:13 A M CDT Height 167.6 cm (5' 6 ) 01/13/2024 8:13 AM CDT Body Mass Index 18.79 01/13/2024 8:13 AM CDT Plan of Treatment Health Maintenance Due Date Last Done Comments HEPATITIS B VACCINES (1 of 3 - 19+ 3-dose series) 1984 HPV/Cotest (21-29) 1986 CERVICAL CANCER SCREENING 10/01/1995 HPV/Cotest (30-65) 10/01/1995 PAP SMEAR 10/01/1995 BREAST CANCER SCREENING 2005 COLORECTAL SCREENING 2010 Colorectal Cancer Screening 2010 FIT-DNA Q 3 years 2010 FIT/FOBT Q 1 year 2010 Flex Sig/CT Colonography Q 5 years 2010 ZOSTER VACCINE (1 of 2) 10/01/2015 INFLUENZA VACCINE (#1) 2023 0, 03/13/2019, 03/02/2018 DTAP/TDAP/TD VACCINES (2 - T d or Tdap) 12/18/2025 12/19/2015 Insurance BCBS BLUE ACCESS/TRUE BLUE PPO BCBS BLUE ACCESS/TRUE BLUE PPO Advance Directives For more information, please contact: [phone] * Full Code (Latest Code Status on File) Date Activated Date Inactivated Comments 01/13/2024 9:34 AM 01/13/2024 3:24 PM * Full Code Date Activated Date Inactivated Comments 01/13/2024 8:08 AM 01/13/2024 9:34 AM * Full Code Date Activated Date Inactivated Comments 08/04/2022 12:15 PM 08/04/2022 7:43 PM
--- OUTSIDE RECORDS SUMMARY | 2024-07-23 08:19 | XMS_ITS | Clinical Summary ---
Author Organization [facility] Address [address] [place] [address] Care Team Providers Care Rn Cardiovascular Name Role Phone Zackery Dawn MD Primary Care Provider Allergies No known active allergies Medications traZODone 100 MG tablet Take 100 mg by mouth 2 (two) times daily. Active nitrofurantoin 50 MG capsule Take 50 mg by mouth daily. Active metoclopramide 5 MG tablet Take 5 mg by mouth 3 (three) times daily. Active zinc sulfate 220 MG capsule Take 220 mg by mouth 3 (three) times daily. Active potassium chloride CR 15 MEQ Tab CR tablet Take 15 mEq by mouth. Active Lactobacillus Acid-Pectin (ACIDOPHILUS/CIT TEA PECTIN) Tab Take 1 tablet by mouth 2 (two) times daily. Active multi vitamin/minerals tablet Take 1 tablet by mouth daily. Active vitamin C 500 MG tablet Take 500 mg by mouth daily. Active magnesium oxide 400 (241.3 Mg) MG tablet Take 400 mg by mouth daily. Active Active Problems No known active problems Immunizations Immunization Administration Dates Next Due Flublok (Quadrivalent) 03/12/2020,03/13/2019,02/2018 Influenza (Generic) 12/19/2015 Tdap (Generic) 12/19/2015 Social History Tobacco Use Types Packs/Day Years Used Date Smoking Tobacco: Never Smokeless Tobacco: Never Alcohol Use Standard Drinks/Week Comments Never 0 (1 standard drink = 0.6 oz pur e alcohol) AUDIT-C Answer Date Recorded Q1: How often do you have a drink containing alc ohol? 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 Gender Identity Not on file Sexual Orientation Not on file Last Filed Vital Signs Vital Sign Reading Time Taken Comments Blood Pressure 99/54 01/10/2021 10:45 AM CDT Pulse 80 01/10/2021 10:10 AM CDT Temperature 36.1 C (96.9 F) 01/10/2021 6:51 AM CDT Respiratory Rate 20 01/10/2021 10:45 AM CDT Oxygen Saturation 94% 01/10/2021 10:45 AM CDT Inhaled Oxygen Concentration - - Weight 58.5 kg (129 lb) 12/31/2020 11:58 AM CDT Height 167.6 cm (5' 6 ) 12/31/2020 11:58 AM CDT Body Mass Index 20.82 12/31/2020 11:58 AM CDT Plan of Treatment Health Maintenance Due Date Last Done Comments Cervical Cancer Screening Pa p Smear (Age 30 to 64) Every 3 Years 1965 Colorectal Cancer Screening Colonoscopy (10 Years) 1965 Annual Physical 1968 Hepatitis C 10/01/1983 Hepatitis B Vaccines (1 of 3 - 19+ 3-dose series) 1984 Cervical Cancer Screening Pa p with HPV Testing (Age 30 to 64) Every 5 Years 10/01/1995 Cervical Cancer Screening with HPV 10/01/1995 Mammogram Screening 2005 Pneumococcal Vaccine: 50+ Ye ars (1 of 1 - PCV) 10/01/2015 Zoster Vaccines (1 of 2) 10/01/2015 COVID-19 Vaccine ( - 2023-2 5 season) 2023 DTaP, Tdap and Td Vaccines ( 2 - Td or Tdap) 12/18/2025 12/19/2015 Meningococcal B Vaccine Aged Out No l onger eligible based on patient's age to complete this topic Meningococcal Vaccine Aged Out No kimber sharron eligible based on patient's age to complete this topic RSV Immunizations Under 20 Months Aged Out No longer eligible based on patient's age to complete this topic Insurance [facility] Care Teams Rn Cardiovascular Relationship Specialty Start Date End Date Zackery Dawn MD [address] [place] [place] [address] PCP - General FAMILY PRACTICE 12/12/19
--- OUTSIDE RECORDS SUMMARY | 2024-07-23 08:19 | XMS_ITS | Encounter Summary ---
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 No / Unsure 01/10/2021 6:37 AM CDT documented as of this encounter Plan of Treatment Not on file documented as of this encounter Results * PRE-SURGICAL/PRE-PROCEDURE CORONAVIRUS (COVID 19) (01/07/2021 1:28 PM CDT) SPECIMEN SOURCE NASAL 1:22 PM CDT [facility] CORONAVIRUS SARS COV 2 PCR (RESP) NEGATIVE NEGATIVE 01/08/2021 7:58 PM CDT [facility] Comment: THE SARS-CoV-2 TEST HAS BEEN AUTHORIZED BY THE FDA UNDER AN EUA FOR USE BY AUTHORIZED LABORATORIES. PERFORMED BY NUCLEIC ACID AMPLIFICATION PCR FIRST TEST NO 01/07/2021 1:22 PM CDT [facility] EMPLOYED IN HEALTHCARE NO 01/07/2021 1:22 PM CDT [facility] SYMPTOMATIC DEFINED BY CDC NO 01/07/2021 1:22 PM CDT [facility] HOSPITALIZATION STATUS NO 01/07/2021 1:22 PM CDT [facility] PATIENT IN ICU NO 01/07/2021 1:22 PM CDT [facility] RESIDENT OF [facility] NO 01/07/2021 1:22 PM CDT [facility] NOT 01/07/2021 1:22 PM CDT [facility] NASAL STRUCTURE / Unknown 01/07/2021 1:28 PM CDT Teofilo Rogers DDS MICROBIOLOGY - GENERAL ORDERA BLES Final Result Performing Organization Address City/State/[facility] Co de Phone Number [facility] [address] [place] [address], [place] [phone] [facility] [address] [place] [address], [place] [phone] documented in this encounter Visit Diagnoses Diagnosis Preop testing- Primary Preoperative examination, unspecified documented in this encounter Additional Health Concerns Infection Onset Date Last Indicated Resolved Time COVID-19 Rule Out 01/07/2021 01/07/2021 01/08/2021 7:58 PM CDT documented as of this encounter Care Teams Plastic Fixture Builder Relationship Specialty Start Date End Date Zackery Dawn MD [address] [place] [address] PCP - General FAMILY PRACTICE 12/12/19 documented as of this encounter
--- OUTSIDE RECORDS SUMMARY | 2024-07-23 08:19 | XMS_ITS | Encounter Summary ---
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 No / Unsure 12/12/2019 8:56 AM CDT documented as of this encounter Functional Status documented as of this encounter Plan of Treatment Not on file documented as of this encounter Results * PRE-SURGICAL/PRE-PROCEDURE CORONAVIRUS (COVID 19) (12/12/2019 9:17 AM CDT) CORONAVIRUS SARS COV 2 PCR (RESP) NOT DETECTED NOT DETECTED 12/13/2019 7:11 PM CDT [facility] Comment: A Not Detected (negative) test result for this test means that SARS- CoV-2 RNA was not present in the specimen above the limit of detection. A negative result does not rule out the possibility of COVID-19 and should not be used as the sole basis for treatment or patient management decisions. If COVID-19 is still suspected, based on exposure history together with other clinical findings, re-testing should be considered in consultation with public health authorities. Laboratory test results should always be considered in the context of clinical observations and epidemiological data in making a final diagnosis and patient management decisions. Please review the Fact Sheets and FDA authorized labeling available for health care providers and patients using the following websites: https://[email or web address] [email or web address]/home/Covid-19/HCP/Quest[facility]D/fact- sheet.html https://www.[employer] Essentials.Dynadmic/home/Covid-19/Patients/ QuestIVD/fact-sheet.html This test has been authorized by the FDA under an Emergency Use Authorization (EUA) for use by authorized laboratories. Due to the current public health emergency, [facility] is receiving a high volume of samples from a wide variety of swabs and media for COVID-19 testing. In order to serve patients during this public health crisis, samples from appropriate clinical sources are being tested. Negative test results derived from specimens received in non-commercially manufactured viral collection and transport media, or in media and sample collection kits not yet authorized by FDA for COVID-19 testing should be cautiously evaluated and the patient potentially subjected to extra precautions such as additional clinical monitoring, including collection of an additional specimen. Methodology: Nucleic Acid Amplification Test (NAAT) includes PCR or TMA Additional information about COVID-19 can be found at the [facility] website: www.[email or web address]. Test performed at [facility] [place] [address] [place] [address] Director: GLEN MCMULLEN DO,MPH FIRST TEST NO 12/12/2019 9:08 AM T [facility] EMPLOYED IN HEALTHCARE NO 12/12/2019 9:08 AM T [facility] SYMPTOMATIC DEFINED BY CDC NO 12/12/2019 9:08 AM CDT [facility] HOSPITALIZATION STATUS NO 12/12/2019 9:08 AM CDT [facility] PATIENT IN ICU NO 12/12/2019 9:08 AM CDT [facility] RESIDENT OF [facility] NO 12/12/2019 9:08 AM CDT [facility] NOT 12/12/2019 9:08 AM CDT [facility] PATIENT'S RACE WHITE OR 12/12/2019 9:08 AM CDT [facility] ETHNICITY UNKNOWN 12/12/2019 9:08 AM CDT [facility] SOURCE (QST) NASOPHARYNGEAL SWAB 12/12/2019 9:08 AM CDT [facility] NASOPHARYNGEAL SWAB / Unknown 12/12/2019 9:17 AM CDT us Teofilo Rogers DDS MICROBIOLOGY - GENERAL ORDERA BLES Final Result Performing Organization Address City/State/[facility] Co de Phone Number [facility] [address] [place] [address], [facility] [address] [place] [address], documented in this encounter Visit Diagnoses Diagnosis Preop testing- Primary Preoperative examination, unspecified documented in this encounter Additional Health Concerns Infection Onset Date Last Indicated Resolved Time COVID-19 Rule Out 12/12/2019 12/12/2019 12/13/2019 7:11 PM CDT COVID-19 Rule Out 01/07/2021 01/07/2021 01/08/2021 7:58 PM CDT documented as of this encounter Care Teams Handle And Vent Machine Operator Relationship Specialty Start Date End Date Zackery Dawn MD [address] [place] [address] PCP - General FAMILY PRACTICE 12/12/19 documented as of this encounter
--- NOTE | 2024-07-23 08:34 | ED.ABDPAIN ---
HPI - Abdominal Pain General Chief Complaint: Abdominal Pain Stated Complaint: abdominal distention x2 weeks Time Seen by Provider: 07/23/24 08:34 Source: patient, family and EMS Mode of arrival: EMS Limitations: clinical condition History of Present Illness HPI narrative: 58 years old white female, [place]agu[place] disease, nonverbal, came to the ED by ambulance from home with her who is telling me that patient been having fever, abdominal distension, looks like in pain, over the last few days. The denies that the patient have any vomiting or diarrhea. He reports intermittent constipation, patient is DNR, Related Data Home Medications ?Medication ?Instructions ?Recorded ?Confirmed ?Last Taken ?Type ascorbate calcium (vitamin C) 500 500 mg feeding tube DAILY 03/26/23 07/23/24 07/23/24 History mg tablet magnesium 200 mg tablet 400 mg feeding tube DAILY 03/26/23 07/23/24 07/23/24 History polyethylene glycol 3350 17 17 g feeding tube DAILY 03/26/23 07/23/24 07/23/24 History gram/dose oral powder (Miralax) trazodone 100 mg tablet 100 mg feeding tube HS 07/23/24 07/23/24 07/23/24 History Allergies Allergy/AdvReac Type Severity Reaction Status Date / Time No Known Allergies Allergy Verified 07/23/24 16:56 Review of Systems Review of Systems: All systems reviewed & are unremarkable except as noted in HPI and below PMFSH Past Medical History Medical History (Updated 07/25/24 @ 05:11 by Siobhan Duenas MD) Constipation Community acquired pneumonia Sepsis History of Caguas's chorea Surgical History Surgical History History of gastrostomy tube placement Approximately 2018 History of endometrial ablation Family History Family History Mother No problems noted. Other Family history of Molly's chorea Social History Social History Smoking status: Never smoker Second hand tobacco smoke exposure: No Alcohol intake: never Substance use: never Substance use type: does not use Do You Feel Safe in your Home?: No Lack of Transportation: No Lack of Food: Never True Current Housing: I Have Housing Concerned About Future Housing: No Difficulty Paying Gas/Electric Bills: No Difficulty Paying for Meds: No Currently Unemployed: No Education: Decline to Answer Difficulty w/ Childcare or Family Care: No Living arrangements: with family Gender identity (if verbalized by the patient): Female Spiritual care concerns: No Exam Narrative: General appearance: debilitated, nonverbal, contracted, looks in pain Skin: Normal color Head: Normocephalic, nontraumatic Eyes: Clear conjunctiva ENT: Dry oral cavity Neck: Supple, nontender Chest and respiratory: Airway patent, no respiratory distress, no accessory muscle use Heart: Regular rate/rhythm Abdomen: Soft, distended, quite bowel sounds Musculoskeletal: Contracte Neurologic: Awake, disoriented x4 Course Consultations Consultation #1: Dr. Mcnamara Call surgery Date: 07/23/24 Time: 12:53 Consultation #2: Dr. Mckinney Accepted the consult Date: 07/23/24 Time: 13:05 Consultation #3: dr nazario, will come for thoracentesis in 2 hours Date: 07/23/24 Time: 13:23 Vital Signs Vital signs: Vital Signs Blood Pressure 158/126 H 07/23/24 08:47 Temperature 36.4 C 07/24/24 20:32 Pulse Rate 99 07/24/24 20:32 Respiratory Rate 24 H 07/24/24 20:32 Blood Pressure 130/93 H 07/24/24 20:32 Pulse Oximetry 90 07/24/24 20:32 Oxygen Delivery Room Air 07/24/24 08:00 MDM - Abdominal Pain MDM Narrative Medical decision making narrative: Patient came with fever, history of [place] disease Vital signs showing heart rate of 135, respiration 45 otherwise insignificant Physical examination showing nonverbal patient, debilitated, contracted, looks probably in pain Differential diagnosis include pneumonia, urinary tract infection, colitis, diverticulitis, appendicitis, cholecystitis, constipation, sepsis Blood workup today includes WBC, CMP, lipase, blood culture, CRP, lactic acid showed WBC 28.0 hemoglobin 10.2 platelet 427, elevated liver enzymes, Urinalysis showed no evidence of infection CT abdomen and pelvis with IV contrast showed large left pleural effusion Chest x-ray showed large left pleural effusion Admit to hospitalist, Intervention radiologist was contacted and thoracentesis would be done within 2 hours. Differential Diagnosis Differential diagnosis: Likely other (As above) Medical Records Attestation: I reviewed the patient's medical records. Lab Data Attestation: I reviewed the patient's lab results. 07/24/24 05:39 07/24/24 05:39 Labs: Lab Results 07/23/24 07/23/24 Range/Units 08:35 09:48 WBC 28.0 H (4.5-10.0) K/mm3 RBC 3.79 L (4.2-5.4) M/mm3 Hgb 10.2 L (12.0-15.0) g/dL Hct 32.8 L (37.0-47.0) % MCV 86.5 (80-100) fl MCH 26.9 (26-34) pg MCHC 31.1 L (32-36) g/dl RDW 14.3 (11.5-14.5) % Plt Count 427 H (150-375) k/mm3 MPV 10.3 (7.4-10.4) fl Immature Gran % (Auto) 1.8 H (0-0.5) % Neut % (Auto) 89.7 H (45.5-73.1) % Lymph % (Auto) 4.2 L (18.3-44.2) % Sullivan % (Auto) 3.9 (2.6-8.5) % Eos % (Auto) 0.2 (0-4.4) % Baso % (Auto) 0.2 (0.2-1.2) % Lymph # (Auto) 1.18 (0.9-3.2) K/mm3 Sullivan # (Auto) 1.1 H (0.1-0.6) K/mm3 Eos # (Auto) 0.1 (0-0.3) K/mm3 Baso # (Auto) 0.1 (0.0-0.1) K/mm3 Abs Immat Gran (auto) 0.50 H (0.00-0.031) K/mm3 Absolute Neuts (auto) 25.2 H (1.3-6.7) K/mm3 Absolute Nucleated RBC 0.000 (0.0-0.012) K/mm3 Nucleated RBC % 0.0 (0.0-0.2) % PT 14.5 (11.1-14.7) Seconds INR 1.1 APTT 27.1 (22.3-36.8) Seconds Sodium 136 L (137-145) mmol/L Potassium 4.0 (3.4-5.0) mmol/L Chloride 101 (98-107) mmol/L Carbon Dioxide 25 (22-30) mmol/L Anion Gap 10 (4-12) mmol/L BUN 16 (7-17) mg/dL Creatinine 0.31 L (0.7-1.0) mg/dL Estim Creat Clear Calc Not Reportable Estimated GFR > 60 (59 - ) Glucose 160 H (65-110) mg/dL Lactic Acid 1.9 (0.7-2.0) mmol/L Calcium 8.4 (8.4-10.2) mg/dL Phosphorus 2.7 (2.5-4.5) mg/dL Total Bilirubin 0.8 (0.2-1.3) mg/dL AST 57 H (14-36) U/L ALT 79 H (6-35) U/L Alkaline Phosphatase 346 H (38-126) U/L C-Reactive Protein 26.9 H (<1.0) mg/dL Total Protein 7.0 (6.3-8.2) g/dL Albumin 3.1 L (3.5-5.1) g/dL Amylase 80 (30-110) U/L Lipase 148 (23-300) U/L Urine Color Dark yellow (Yellow) Urine Appearance Clear (Clear) Urine pH 7.5 (5.0-9.0) Ur Specific [place] > 1.045 H (1.001-1.035) Urine Protein 2+ H (Negative) mg/dL Urine Glucose (UA) Negative (Negative) mg/dL Urine Ketones Negative (Negative) mg/dL Ur Blood (Man) Negative (Negative) Urine Nitrate Negative (Negative) Urine Bilirubin Negative (Negative) Urine Urobilinogen 1.0 (<2.0) mg/dL Add Ur Microanalysis Reviewed Leukocyte Esterase Rfl Negative (Negative) MAGEN/UL Urine RBC 6-10 H (0-2) /hpf Urine WBC 0-5 (0-3) /hpf Ur Squamous Epith Cells Few (Few) /hpf Urine Bacteria None seen /hpf Urine Casts 0-2 Imaging Data Radiologist's impression: ITS Impressions Abdomen/Pelvis CT 07/23/24 12:18 IMPRESSION: 1. No evidence of diverticulitis, appendicitis or definite bowel obstruction. Possibility of embolus in the sigmoid colon cannot be excluded. Further evaluation advised. 2. Fecal impaction seen in the rectosigmoid area. 3. Large left pleural effusion with atelectasis of the left lower lobe and lingula. Deviation of the heart to the right is noted. 4. Nodule in the right lower lobe measuring 1.[address] follow-up advised Dr. Duenas was notified with the result of the patient at 12:46 PM on July 23, 2024 Chest X-Ray 07/23/24 17:46 IMPRESSION: Large left pleural effusion. Left lung atelectasis. No pneumothorax detected. Thoracentesis Ultrasound 07/24/24 08:22 IMPRESSION: 1. Successful ultrasound-guided thoracentesis yielding 250 mL of yellowish fluid. Critical Care Time Critical Care Time Critical Care Time: Yes Total Critical Care Time: 30 Discharge Plan Discharge Clinical Impression: Pleural effusion on left, Leukocytosis Patient Disposition: Still a Patient Condition: Serious
--- NOTE | 2024-07-23 09:07 | PC.NURSE ---
Reached out to [facility] for assistance in IV and lab draws.
--- NOTE | 2024-07-23 09:19 | PC.NURSE ---
4 unsuccessful IV attempts. Charge called [facility] for midline placement
--- OUTSIDE RECORDS SUMMARY | 2024-07-23 09:24 | XMS_ITS | Clinical Summary ---
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
--- OUTSIDE RECORDS SUMMARY | 2024-07-23 09:24 | XMS_ITS | Encounter Summary ---
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 PERFORMED BY NUCLEIC ACID AMPLIFICATION PCR FIRST TEST NO 01/07/2021 1:22 PM CDT [facility] EMPLOYED IN HEALTHCARE NO 01/07/2021 1:22 PM CDT [facility] SYMPTOMATIC DEFINED BY CDC NO 01/07/2021 1:22 PM CDT [facility] HOSPITALIZATION STATUS NO 01/07/2021 1:22 PM CDT [facility] PATIENT IN ICU NO 01/07/2021 1:22 PM CDT [facility] RESIDENT OF [facility] NO 01/07/2021 1:22 PM CDT [facility] NOT 01/07/2021 1:22 PM CDT [facility] NASAL STRUCTURE / Unknown 01/07/2021 1:28 PM CDT Teofilo Rogers DDS MICROBIOLOGY - GENERAL ORDERA BLES Final Result Performing Organization Address City/State/[facility] Co de Phone Number [facility] [address] [place] [address], [place] [phone] [facility] [address] [place] [address], [place] [phone] documented in this encounter Visit Diagnoses Diagnosis Preop testing- Primary Preoperative examination, unspecified documented in this encounter Additional Health Concerns Infection Onset Date Last Indicated Resolved Time COVID-19 Rule Out 01/07/2021 01/07/2021 01/08/2021 7:58 PM CDT documented as of this encounter Care Teams Foot Tender Relationship Specialty Start Date End Date Zackery Dawn MD [address] [place] [address] PCP - General FAMILY PRACTICE 12/12/19 documented as of this encounter
--- OUTSIDE RECORDS SUMMARY | 2024-07-23 09:24 | XMS_ITS | Clinical Summary ---
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
--- OUTSIDE RECORDS SUMMARY | 2024-07-23 09:24 | XMS_ITS | Encounter Summary ---
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 Due to the current public health emergency, [facility] is receiving a high volume of samples [...] about COVID-19 can be found at the [facility] website: www.[employer].TELOS/Covid19. Test performed at [place] [facility] [place] [address] [place] [address] Director: GLEN MCMULLEN DO,MPH FIRST TEST NO 12/12/2019 9:08 AM T [facility] EMPLOYED IN HEALTHCARE NO 12/12/2019 9:08 AM T [facility] SYMPTOMATIC DEFINED BY CDC NO 12/12/2019 9:08 AM CDT [facility] HOSPITALIZATION STATUS NO 12/12/2019 9:08 AM CDT [facility] PATIENT IN ICU NO 12/12/2019 9:08 AM CDT [facility] RESIDENT OF CRITICAL ACCESS HOSPITAL CARE NO 12/12/2019 9:08 AM CDT [facility] NOT 12/12/2019 9:08 AM CDT [facility] PATIENT'S RACE WHITE OR 12/12/2019 9:08 AM CDT [facility] ETHNICITY UNKNOWN 12/12/2019 9:08 AM CDT [facility] SOURCE (QST) NASOPHARYNGEAL SWAB 12/12/2019 9:08 AM CDT [facility] NASOPHARYNGEAL SWAB / Unknown 12/12/2019 9:17 AM CDT us Teofilo Rogers DDS MICROBIOLOGY - GENERAL ORDERA BLES Final Result Performing Organization Address City/State/[facility] Co de Phone Number [facility] [address] [place] [address], [facility] [facility] [id number] [place] [address], documented in this encounter Visit Diagnoses Diagnosis Preop testing- Primary Preoperative examination, unspecified documented in this encounter Additional Health Concerns Infection Onset Date Last Indicated Resolved Time COVID-19 Rule Out 12/12/2019 12/12/2019 12/13/2019 7:11 PM CDT COVID-19 Rule Out 01/07/2021 01/07/2021 01/08/2021 7:58 PM CDT documented as of this encounter Care Teams Dance Costume Designer Relationship Specialty Start Date End Date Zackery Dawn MD [address] [place] [address] PCP - General FAMILY PRACTICE 12/12/19 documented as of this encounter
[2024-07-23 09:58] LABS: Basophils Absolute Auto 0.1 K/mm3 (0.0-0.1); Basophils Percent Auto 0.2 % (0.2-1.2); Eosinophils Absolute Auto 0.1 K/mm3 (0-0.3); Eosinophils Percent Auto 0.2 % (0-4.4); Hematocrit 32.8 % (37.0-47.0); Hemoglobin 10.2 g/dL (12.0-15.0); Immature Granulocyte Percent A 1.8 % (0-0.5); Lymphocytes Absolute Auto 1.18 K/mm3 (0.9-3.2); Lymphocytes Percent Auto 4.2 % (18.3-44.2); Mean Corpuscular HGB Conc 31.1 g/dl (32-36); Mean Corpuscular Hemoglobin 26.9 pg (26-34); Mean Corpuscular Volume 86.5 fl (80-100); Mean Platelet Volume 10.3 fl (7.4-10.4); Monocytes Absolute Auto 1.1 K/mm3 (0.1-0.6); Monocytes Percent Auto 3.9 % (2.6-8.5); Neutrophils Absolute Auto 25.2 K/mm3 (1.3-6.7); Neutrophils Percent Auto 89.7 % (45.5-73.1); Platelet Count Result 427 k/mm3 (150-375); Red Blood Count 3.79 M/mm3 (4.2-5.4); Red Cell Distribution Width 14.3 % (11.5-14.5)
[2024-07-23 10:06] LABS: Lactic Acid Reflex 1.9 mmol/L (0.7-2.0)
[2024-07-23 10:07] LABS: Alanine Aminotransferase 79 U/L (6-35); Albumin Level 3.1 g/dL (3.5-5.1); Alkaline Phosphatase 346 U/L (38-126); Anion Gap 10 mmol/L (4-12); Aspartate Amino Transferase 57 U/L (14-36); Bilirubin,Total 0.8 mg/dL (0.2-1.3); Blood Urea Nitrogen 16 mg/dL (7-17); Calcium 8.4 mg/dL (8.4-10.2); Carbon Dioxide 25 mmol/L (22-30); Chloride 101 mmol/L (98-107); Estimated Glomerular Filt Rate > 60; Glucose 160 mg/dL (65-110); Lipase 148 U/L (23-300); Sodium 136 mmol/L (137-145)
[2024-07-23] MEDS: MORPHINE SULFATE (*CRX) 4 MG/ML INJ IV PUSH ×4 (10:52→22:37)
[2024-07-23] MEDS: SODIUM CHLORIDE 0.9% IV 1,000 ML 999 ML IV CONT ×2 (10:52→12:10)
[2024-07-23] MEDS: ONDANSETRON INJ 4 MG/2 ML VIAL IV PUSH ×2 (10:53→14:02)
--- NOTE | 2024-07-23 11:01 | PC.NURSE ---
lab at [facility] for cultures
[2024-07-23 11:07] LABS: INR 1.1; Prothrombin Time 14.5 Seconds (11.1-14.7)
[2024-07-23 11:08] LABS: Partial Thromboplastin Time 27.1 Seconds (22.3-36.8)
[2024-07-23 11:18] LABS: CRP 26.9 mg/dL (<1.0)
--- NOTE | 2024-07-23 11:40 | PC.NURSE ---
No urine has been obtained from catheter at this time, will continue to observe catheter for urine to send to lab as soon as it's collected. lab at bedside for blood cultures at this time
--- NOTE | 2024-07-23 12:04 | PC.NURSE ---
2nd steel welder is at bedside at this time to attempt blood cultures again.
[2024-07-23] MEDS: PIPERACILLN/TAZ 3.375GM/NS50ML 3.375 GM/50 ML BAG IVPB (12:10)
[2024-07-23] MEDS: SODIUM CHLORIDE 0.9% IV 800 ML 999 ML IV CONT (12:58)
[2024-07-23 13:05] LABS: Add Urine Microscopic? YES; Appearance Urine Clear (Clear); Bacteria Urine None Seen /hpf; Bilirubin Urine Negative (Negative); Blood Urine Negative (Negative); Color Urine Dark Yellow (Yellow); Glucose Urine UA Negative (Negative); Ketones Urine Negative (Negative); Leukocyte Esterase Ur Negative LEU/UL (Negative); Need Manual Microscopic Reviewed; Nitrate Urine Negative (Negative); Non Pathogenic Casts 0-2; Protein Urine 2+ mg/dL (Negative); Specific Grav Ur > 1.045 (1.001-1.035); Squamous Epithelial Cell Urine Few /hpf (Few); WBC Urine 0-5 /hpf (0-3); pH Urine 7.5 (5.0-9.0)
--- NOTE | 2024-07-23 13:42 | PC.NURSE ---
Spoke with Ultrasound staff members at this time, Dr. Coronel will be here around 1600 for thoracentesis
--- NOTE | 2024-07-23 14:46 | PM.IMHP ---
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 Pt is tube fed through a G-tube with Nutron 1.5 and 2.0 bolus fed 250 ml BID with a 100 ml flush and then 500mg at HS at 30 ml/hr and free water flush of 40 ml hourly. Bowel regimen followed by spouse at home includes clearlax daily and manual disimpaction/manipulation. Pt's spouse denies any vomiting at home and admits he does travel for work and that there is a respiratory care practitioner who helps him by staying at the house when he cannot. In the ER, workup was initiated with labs and imaging. findings significant for white blood cell count of 28.0. Lactic acid was normal at 1.9. Urinalysis negative, new elevation to transaminases with AST noted to be elevated 57, ALT at 79 and CRP elevated at 26.9. Lipase is 148. Alk-phos is 346. Coags are normal with PT of 14.5, INR 1.1 and PTT of 27.1. Her VS show that she is tachycardic with Pulse in the 120s, tachypneic with respiratory rate in the 30s, and she is hypertensive. urinalysis is negative and lipase is normal at 148. Oxygen saturations are maintaining in the low 90s. Chest x-ray shows a left pleural effusion with adjacent atelectasis versus pneumonia. CT abdomen and pelvis showing a large left pleural effusion with atelectasis of the left lower lobe and deviation of the heart to the right. There is also fecal impaction in the rectal sigmoid area. There was concern for possibility of embolus in the sigmoid colon that cannot be excluded. Your physicians spoke with General surgery, Dr. Mckinney who advised that findings are consistent with constipation and impaction. Patient spoke with pulmonology Dr. Coronel, who will be coming to the bedside to do Thoracentesis of the very large effusion present. patient has empirically been started on Zosyn and She has been medicated for pain with morphine and IV fluids have been initiated. Patient is a do not resuscitate Patient takes prophylactic Macrobid for UTI prevention. She takes trazodone at night to assist with sleep. Review of Systems Review of Systems: patient unable to give history as she is unable. All history obtained from previous EMR and through her spouse who is present at the bedside and who is the POA. [facility] Past Medical History Medical History (Updated 07/23/24 @ 15:21 by CORIE Mohamud) Constipation Community acquired pneumonia Sepsis History of [place]'s chorea Surgical History Surgical History History of gastrostomy tube placement Approximately 2018 History of endometrial ablation Family History Family History Mother No problems noted. Other Family history of Molly's chorea Social History Social History Smoking status: Never smoker Second hand tobacco smoke exposure: No Alcohol intake: unknown Substance use: unknown Substance use type: does not use Current Housing: Decline to Answer Concerned About Future Housing: Decline to Answer Difficulty Paying Gas/Electric Bills: Decline to Answer Difficulty Paying for Meds: Decline to Answer Currently Unemployed: Decline to Answer Difficulty w/ Childcare or Family Care: No Living arrangements: with family Gender identity (if verbalized by the patient): Female Spiritual care concerns: No Meds Home Medications and Allergies Home Medications ?Medication ?Instructions ?Recorded ?Confirmed ?Type zinc gluconate 50 mg tablet 50 mg PO QID #360 tabs 01/29/22 07/13/24 Rx Nutritional Supplement #1 ea 08/21/22 07/13/24 Rx ascorbate calcium (vitamin C) 500 500 mg feeding tube DAILY 03/26/23 07/13/24 History mg tablet magnesium 200 mg tablet 400 mg feeding tube DAILY 03/26/23 07/13/24 History polyethylene glycol 3350 17 17 g feeding tube DAILY 03/26/23 07/13/24 History gram/dose oral powder (Miralax) trazodone 100 mg tablet 100 mg feeding tube BID #180 tabs 10/07/23 07/13/24 Rx nitrofurantoin macrocrystal 50 mg 50 mg feeding tube DAILY senior living 11/01/23 07/13/24 Rx capsule UTI #90 caps potassium chloride 20 mEq/15 mL 20 meq (15 mL) PO BID #3,800 mL 04/14/24 07/13/24 Rx oral liquid Allergies Allergy/AdvReac Type Severity Reaction Status Date / Time No Known Allergies Allergy Verified 07/13/24 11:11 Vital Signs Vital Signs - 24 hr 07/23/24 08:47 07/23/24 08:48 07/23/24 08:52 Temperature 97.8 F Pulse Rate 135 H Respiratory Rate 45 H Blood Pressure 158/126 H 123/58 L Pulse Oximetry 95 96 07/23/24 09:20 07/23/24 09:30 07/23/24 09:45 Temperature Pulse Rate 131 H Respiratory Rate 27 H 31 H 40 H Blood Pressure Pulse Oximetry 96 94 95 07/23/24 10:29 07/23/24 10:30 07/23/24 10:45 Temperature Pulse Rate 135 H 134 H 135 H Respiratory Rate 36 H 40 H 30 H Blood Pressure Pulse Oximetry 94 97 95 07/23/24 10:53 07/23/24 11:09 07/23/24 11:21 Temperature Pulse Rate 123 H 121 H 118 H Respiratory Rate 33 H 25 H 32 H Blood Pressure 131/75 Pulse Oximetry 91 07/23/24 11:35 07/23/24 11:47 07/23/24 12:03 Temperature Pulse Rate 117 H 119 H 116 H Respiratory Rate 28 H 23 H 29 H Blood Pressure Pulse Oximetry 07/23/24 12:06 07/23/24 12:15 07/23/24 12:30 Temperature Pulse Rate 118 H 114 H 113 H Respiratory Rate 26 H 32 H 30 H Blood Pressure 147/121 H Pulse Oximetry 07/23/24 12:46 07/23/24 13:02 07/23/24 13:30 Temperature Pulse Rate 117 H 120 H 126 H Respiratory Rate 31 H 38 H 28 H Blood Pressure Pulse Oximetry 07/23/24 13:31 07/23/24 13:45 Temperature Pulse Rate 123 H 125 H Respiratory Rate 26 H 31 H Blood Pressure Pulse Oximetry Exam Const: General: uncomfortable Other: This 58-year-old female patient appears older than documented age appears uncomfortable laying on stretcher at this time. She is nonverbal, cannot give meaningful information about her current situation, and appears to be fidgeting. HENMT: Face/Nose/Sinus: Normal nares present Mouth: Yes dry mucous membranes Eyes: General: appearance normal, both eyes and all related structures Neck: Neck: supple and no JVD Resp: Effort & Inspection: abnormal respiratory effort ( Effort slightly increased) Auscultation: crackles, rales and diminished lung sounds Cardio: Rate: tachycardic Rhythm: regular rhythm Heart sounds: no gallops, no murmurs and no rubs GI: Inspection: distended GI Palp: Yes Firmness to palpation present (GI) Auscultation: abnormal bowel sounds ( diminished throughout) Other: G-tube present in left upper quadrant Skin: General skin exam: normal color, no rashes or lesions noted and no erythema Lesions: no lesions noted Rashes: no rashes noted Wounds: no wounds Neuro: General: No gait normal ( patient does not ambulate) Speech: No normal speech ( patient is nonverbal) Motor exam (neuro): Abnormal motor strength present ( spasticity the upper extremities with contracture of the hands) and Motor abnormalites present choreoathetosis Extrem: General: normal exam except as noted Other: spasticity and contracture Psych: Other: unable to assess H&P: Results Labs Labs: Short CBC 07/23/24 Range/Units 09:48 WBC 28.0 H (4.5-10.0) K/mm3 Hgb 10.2 L (12.0-15.0) g/dL Hct 32.8 L (37.0-47.0) % Plt Count 427 H (150-375) k/mm3 BMP 07/23/24 09:48 Sodium 136 L Potassium 4.0 Chloride 101 Carbon Dioxide 25 BUN 16 Creatinine 0.31 L Glucose 160 H Calcium 8.4 Liver Function 07/23/24 Range/Units 09:48 Total Bilirubin 0.8 (0.2-1.3) mg/dL AST 57 H (14-36) U/L ALT 79 H (6-35) U/L Alkaline Phosphatase 346 H (38-126) U/L Albumin 3.1 L (3.5-5.1) g/dL Urine 07/23/24 Range/Units 08:35 Urine Color Dark yellow (Yellow) Urine Appearance Clear (Clear) Urine pH 7.5 (5.0-9.0) Ur Specific [place] > 1.045 H (1.001-1.035) Urine Protein 2+ H (Negative) mg/dL Urine Glucose (UA) Negative (Negative) mg/dL Assessment and Plan Assessment and plan (1) Sepsis: Code(s): A41.9 - Sepsis, unspecified organism Status: Acute Assessment and Plan: as evidence by white blood cell count of 28.0, respiratory rate of 31, pulse of 125 and known source of infection being left lung normal lactic acid at 1.9 blood cultures pending x2 patient empirically started on Zosyn and Levaquin IV fluid bolus 30 milliliters/kilogram administered an ER and maintenance rate at 125 mL/hour continues. Continue to monitor and trend vital signs and labs. (2) Community acquired pneumonia: Code(s): J18.9 - Pneumonia, unspecified organism Status: Acute Assessment and Plan: As evidenced by chest x-ray showing left pleural effusion and adjacent atelectasis versus pneumonia as well as CT abdomen and pelvis that was extended through the chest showing a large left pleural effusion with atelectasis left lower lobe with deviation of the heart to the right. ER physician spoke with automobile brakes bonder Dr. Coronel, who will be coming in to do a stat Thoracentesis. Continuing sepsis protocol as noted in #1 Continuing supportive care with monitoring of labs and VS. (3) Constipation: Code(s): K59.00 - Constipation, unspecified Status: Acute Assessment and Plan: As evidenced by CT scan abd and pelvis. There is fecal impaction of the rectosigmoid area with possibility of embolus of the sigmoid colon that cannot be excluded. ER physician spoke with Gen John Mckinney who advises nothing more to do than to clear the constipation. Bowel regimen at home is daily clearlax and manual manipulation. Will start bowel regimen here with colace enema daily until bowels are moving and Lactulose 20 G per tube daily until bowels are moving. (4) [place]'s disease: Code(s): G10 - [place]'s disease Status: Chronic Assessment and Plan: Chronic in nature. Resides in the care of her spouse at home. Potential for caregiver stress. Consider Care coordination consult for possible placement. At her baseline level of functioning which is full care. (5) Elevated liver enzymes: Code(s): R74.8 - Abnormal levels of other serum enzymes Status: Chronic Assessment and Plan: Acute on chronic as compared to one year ago. CT scan does not reflect any Cholecystic/Biliary tree pathology. Transaminases are similar to what they have been previously when looking back. If continued trending upward, consider US RUQ. 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 Holding feedings at this time. (7) Recurrent UTI: Code(s): N39.0 - Urinary tract infection, site not specified Status: Chronic Assessment and Plan: Secondary to underlying disease processes. Continue Macrobid as prophylaxis. Quality VTE Prophylaxis VTE prophylaxis: mechanical ordered Hospitalist MIPS Advance Care Plan I have confirmed that the patient's Advanced Care Plan is present, code status is documented, or surrogate decision maker is listed in patient medical record.: Yes Medication Reconciliation I have utilized all available resources to obtain, update and review the patients current medications (includes all prescriptions, OTC, herbals, cannabis, and nutritional supplements).: Yes
--- NOTE | 2024-07-23 14:54 | ECG_ITS ---
Test Date: 2024-07-23 15:15:57 Measurements Intervals [place] Rate: 121 P: 34 [place]: 101 QRS: 29 QRSD: 70 T: 46 QT: 297 QTc: 423 Interpretive Statements SINUS TACHYCARDIA WITH SHORT [place] INTERVAL ABNORMAL RHYTHM ECG No previous ECG available for comparison Electronically Signed On 07-23-2024 16:06:39 CDT by Alyssa Charlton
[2024-07-23 15:40] LABS: Phosphorus 2.7 mg/dL (2.5-4.5)
[2024-07-23] MEDS: DOCUSATE SODIUM 400 MG/400 ML ENEMA RECTAL (15:55)
[2024-07-23] MEDS: SODIUM CHLORIDE 0.9% IV 1,000 ML 125 ML IV CONT (16:28)
[2024-07-23] MEDS: levoFLOXacin 750 MG/D5W 150 ML 750 MG/150 ML BAG 100 MG IVPB (16:29)
[2024-07-23] MEDS: LACTULOSE 20 GM/30 ML UDC FEED TUBE (16:29)
--- NOTE | 2024-07-23 16:44 | ADMGEN ---
This patient, Lillian Pastrana, was admitted to 3 [facility] Surg Room 305-02. Patient/family oriented to hospital policies and general routines including ID bracelet, bed and alarms, visiting hours, pain management, procedures, bathroom and other care routines, personal items, smoking policy, room service/diet, and visiting hours. Information on how to activate the Rapid Response Team has been discussed. Patient/Family are encouraged to report perceived risks to care and to ask questions if they do not understand what they are told or what they should do.
[2024-07-23 17:45] LABS: Amylase 80 U/L (30-110)
[2024-07-23 18:02] LABS: Glucose Point of Care 102 mg/dl (65-105)
[2024-07-23 18:27] LABS: pH Pleural Fluid < 7.000 (7.210-7.500)
[2024-07-23 19:06] LABS: Appearance Pleural Fluid Cloudy (Clear)
[2024-07-23 19:07] LABS: Color Pleural Fluid Yellow (Colorless); Lymphocytes Pleural Fluid 4 %; Macrophages Pleural Fluid 6 %; Monocytes Pleural Fluid 5 %; Neutrophils Pleural Fluid 85 % (0-25)
[2024-07-23 19:08] LABS: Mesothelial Cells Pleural Flui 0 %
[2024-07-23 19:15] LABS: Pleural fluid source Pleural fluid
[2024-07-23] MEDS: PIPERACILLIN/TAZ 4.5G/NS 100ML 4.5 GM/100 ML BAG IVPB (21:48)
[2024-07-23] MEDS: traZODone HCL 50 MG TABLET 100 MG FEED TUBE (21:51)
[2024-07-24 00:05] LABS: MRSA (PCR) NOT DETECTED (NOT DETECTE)
[2024-07-24] MEDS: SODIUM CHLORIDE 0.9% IV 1,000 ML 125 ML IV CONT ×3 (02:37→22:52)
[2024-07-24] MEDS: PIPERACILLIN/TAZ 4.5G/NS 100ML 4.5 GM/100 ML BAG IVPB ×2 (03:06→09:45)
[2024-07-24 03:07] VITALS: BMI 21.8
[2024-07-24 04:00] VITALS: BP 145/69; PULSE 79; RESP 20; TEMP 37; O2SAT 93
[2024-07-24 06:16] LABS: Hematocrit 26.9 % (37.0-47.0); Hemoglobin 8.1 g/dL (12.0-15.0); Mean Corpuscular HGB Conc 30.1 g/dl (32-36); Mean Corpuscular Hemoglobin 26.7 pg (26-34); Mean Corpuscular Volume 88.8 fl (80-100); Mean Platelet Volume 10.6 fl (7.4-10.4); Platelet Count Result 377 k/mm3 (150-375); Red Blood Count 3.03 M/mm3 (4.2-5.4); Red Cell Distribution Width 14.9 % (11.5-14.5); White Blood Count 28.9 K/mm3 (4.5-10.0)
[2024-07-24 06:25] LABS: Lactic Acid Reflex 0.9 mmol/L (0.7-2.0)
[2024-07-24 06:31] LABS: INR 1.3; Prothrombin Time 16.1 Seconds (11.1-14.7)
[2024-07-24 06:32] LABS: Partial Thromboplastin Time 27.2 Seconds (22.3-36.8)
[2024-07-24 06:44] LABS: Alanine Aminotransferase 55 U/L (6-35); Albumin Level 2.5 g/dL (3.5-5.1); Alkaline Phosphatase 259 U/L (38-126); Anion Gap 9 mmol/L (4-12); Aspartate Amino Transferase 33 U/L (14-36); Bilirubin,Total 1.1 mg/dL (0.2-1.3); Blood Urea Nitrogen 11 mg/dL (7-17); Calcium 7.6 mg/dL (8.4-10.2); Carbon Dioxide 20 mmol/L (22-30); Chloride 109 mmol/L (98-107); Estimated CRCL calculation 96 ml/min; Estimated Glomerular Filt Rate > 60; Glucose 94 mg/dL (65-110); Magnesium 2.2 mg/dL (1.6-2.3); Potassium 3.4 mmol/L (3.4-5.0); Sodium 138 mmol/L (137-145)
[2024-07-24 06:53] LABS: Anisocytosis 1+; Band Neutrophils Percent 9 % (0-6); Burr Cells 1+; Lymphocytes Absolute Manual 1.73 K/mm3 (1.1-4.5); Lymphocytes Percent Manual 6 % (18-44); Monocytes Absolute Manual 0.57 K/mm3 (0.1-0.90); Monocytes Percent Manual 2 % (3-9); Neutrophils Absolute Manual 26.58 K/mm3 (1.7-7.2); Neutrophils Percent Manual 83 % (46-73); Platelet Estimate Adequate (Adequate); Schistocytes None Seen; Total Cells Counted 100
[2024-07-24 07:12] LABS: CRP 30.2 mg/dL (<1.0)
--- NOTE | 2024-07-24 07:17 | P.PNIM_ITS ---
Progress Note: A&P Assessment and Plan (1) Sepsis: Code(s): A41.9 - Sepsis, unspecified organism Status: Acute Assessment and Plan: * as evidence by white blood cell count of 28.0, respiratory rate of 31, pulse of 125 and known source of infection being left lung * normal lactic acid at 1.9 * blood cultures pending x2 * Zosyn and Azithromycin * IV fluid bolus 30 milliliters/kilogram administered an ER and maintenance rate at 125 mL/hour continues. * Continue to monitor and trend vital signs and labs. (2) Community acquired pneumonia: Code(s): J18.9 - Pneumonia, unspecified organism Status: Acute Assessment and Plan: * As evidenced by chest x-ray showing left pleural effusion and adjacent atelectasis versus pneumonia as well as CT abdomen and pelvis that was extended through the chest showing a large left pleural effusion with atelectasis left lower lobe with deviation of the heart to the right. * ER physician spoke with stem processing machine operator Dr. Coronel, who will be coming in to do a stat Thoracentesis. * Continuing sepsis protocol as noted in #1 * Continuing supportive care with monitoring of labs and VS. (3) Pleural effusion: Code(s): J90 - Pleural effusion, not elsewhere classified Status: Acute Assessment and Plan: * CXR: Large left pleural effusion. Left lung atelectasis. No pneumothorax detected. * Crime Investigator Special Agent Dr. Coronel consulted * Thoracentesis performed 07/24/2024 * Thoracentesis US: Successful ultrasound-guided thoracentesis yielding 250 mL of yellowish fluid. (4) Constipation: Code(s): K59.00 - Constipation, unspecified Status: Acute Assessment and Plan: * As evidenced by CT scan abd and pelvis. There is fecal impaction of the rectosigmoid area with possibility of embolus of the sigmoid colon that cannot be excluded. * ER physician spoke with Gen John Mckinney who advises nothing more to do than to clear the constipation. * Bowel regimen at home is daily clearlax and manual manipulation. * Will start bowel regimen here with colace enema daily until bowels are moving and Lactulose 20 G per tube daily until bowels are moving. 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 Resides in the care of her spouse at home. * Potential for caregiver stress. Consider Care coordination consult for possible placement. * At her baseline level of functioning which is full care. (6) Elevated liver enzymes: Code(s): R74.8 - Abnormal levels of other serum enzymes Status: Chronic Assessment and Plan: * Acute on chronic as compared to one year ago. * CT scan does not reflect any Cholecystic/Biliary tree pathology. * Transaminases are similar to what they have been previously when looking back. * If continued trending upward, consider US RUQ. 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 * Holding feedings at this time. (8) Recurrent UTI: Code(s): N39.0 - Urinary tract infection, site not specified Status: Chronic Assessment and Plan: * Secondary to underlying disease processes. * Continue Macrobid as prophylaxis. Subjective Date/time seen: 07/24/24 07:17 Interval history: 58 year old female pt with hx of severe disability from [place]'s disease, who is nonverbal and who resides at her home with her spouse who is her primary home day care provider is brought to the ER by him for evaluation of two weeks of low grade temperatures and decreased bowel movements with increasing abdominal distention and overall appearance of appearing more uncomfortable. 07/24/2024 Pt sitting in bed at time of exam. Thoracentesis to be performed today. Cultures and Pleural Fluid analysis still pending at this time. Will plan on continuing antibiotics for Pneumonia, WBC still elevated at 28.9 today. Ca+ low, will supp. Review of Systems Review of Systems: patient unable to give history as she is unable. All history obtained from previous EMR and through her spouse who is present at the bedside and who is the POA. Exam Const: General: uncomfortable Other: This 58-year-old female patient appears older than documented age appears uncomfortable laying on stretcher at this time. She is nonverbal, cannot give meaningful information about her current situation, and appears to be fidgeting. HENMT: Face/Nose/Sinus: Normal nares present Mouth: Yes dry mucous membranes Eyes: General: appearance normal, both eyes and all related structures Neck: Neck: supple and no JVD Resp: Effort & Inspection: abnormal respiratory effort ( Effort slightly increased) Auscultation: crackles, rales and diminished lung sounds Cardio: Rate: regular rate Rhythm: regular rhythm Heart sounds: no gallops, no murmurs and no rubs GI: Inspection: distended Auscultation: abnormal bowel sounds ( diminished throughout) Other: G-tube present in left upper quadrant Skin: General skin exam: normal color, no rashes or lesions noted, no erythema, No lesion and No rashes Lesions: no lesions noted Rashes: no rashes noted Wounds: no wounds Neuro: General: No gait normal ( patient does not ambulate) Speech: No normal speech ( patient is nonverbal) Motor exam (neuro): Abnormal motor strength present ( spasticity the upper extremities with contracture of the hands) and Motor abnormalites present choreoathetosis Extrem: General: normal exam except as noted Other: spasticity and contracture Psych: Other: unable to assess Objective Data Vital Signs Vital Signs: Vital Signs - 24 hr 07/23/24 08:47 07/23/24 08:48 07/23/24 08:52 Temperature 97.8 F Pulse Rate 135 H Respiratory Rate 45 H Blood Pressure 158/126 H 123/58 L Pulse Oximetry 95 96 Oxygen Delivery 07/23/24 09:20 07/23/24 09:30 07/23/24 09:45 Temperature Pulse Rate 131 H Respiratory Rate 27 H 31 H 40 H Blood Pressure Pulse Oximetry 96 94 95 Oxygen Delivery 07/23/24 10:29 07/23/24 10:30 07/23/24 10:45 Temperature Pulse Rate 135 H 134 H 135 H Respiratory Rate 36 H 40 H 30 H Blood Pressure Pulse Oximetry 94 97 95 Oxygen Delivery 07/23/24 10:53 07/23/24 11:09 07/23/24 11:21 Temperature Pulse Rate 123 H 121 H 118 H Respiratory Rate 33 H 25 H 32 H Blood Pressure 131/75 Pulse Oximetry 91 Oxygen Delivery 07/23/24 11:35 07/23/24 11:47 07/23/24 12:03 Temperature Pulse Rate 117 H 119 H 116 H Respiratory Rate 28 H 23 H 29 H Blood Pressure Pulse Oximetry Oxygen Delivery 07/23/24 12:06 07/23/24 12:15 07/23/24 12:30 Temperature Pulse Rate 118 H 114 H 113 H Respiratory Rate 26 H 32 H 30 H Blood Pressure 147/121 H Pulse Oximetry Oxygen Delivery 07/23/24 12:46 07/23/24 13:02 07/23/24 13:30 Temperature Pulse Rate 117 H 120 H 126 H Respiratory Rate 31 H 38 H 28 H Blood Pressure Pulse Oximetry Oxygen Delivery 07/23/24 13:31 07/23/24 13:45 07/23/24 14:00 Temperature Pulse Rate 123 H 125 H 126 H Respiratory Rate 26 H 31 H 29 H Blood Pressure Pulse Oximetry Oxygen Delivery 07/23/24 14:04 07/23/24 14:15 07/23/24 14:31 Temperature Pulse Rate 121 H 120 H 121 H Respiratory Rate 26 H 22 H 19 Blood Pressure 142/117 H 189/151 H Pulse Oximetry 93 95 Oxygen Delivery 07/23/24 14:32 07/23/24 14:46 07/23/24 15:00 Temperature Pulse Rate 121 H 122 H 121 H Respiratory Rate 25 H 19 34 H Blood Pressure Pulse Oximetry 93 95 95 Oxygen Delivery 07/23/24 15:02 07/23/24 15:30 07/23/24 18:02 Temperature Pulse Rate 122 H 118 H Respiratory Rate 26 H 16 Blood Pressure 188/171 H 128/97 H Pulse Oximetry 91 96 Oxygen Delivery Room Air 07/23/24 20:00 07/24/24 04:00 Temperature 98.8 F 98.6 F Pulse Rate 71 79 Respiratory Rate 20 20 Blood Pressure 117/92 H 145/69 H Pulse Oximetry 95 93 Oxygen Delivery Intake/Output Intake/Output: Intake & Output 07/21/24 07/22/24 07/23/24 07/24/24 23:59 23:59 23:59 23:59 Intake Total 2950 1000 Output Total 400 300 Balance 2550 700 Meds/Results Medications: Active Medications Generic Name Dose Route Start Last Admin Trade Name Freq PRN Reason Stop Dose Admin Ascorbic Acid 500 mg 07/24/24 09:00 Ascorbic Acid 500 Mg Tablet FEED TUBE DAILY AUTUMN Docusate Sodium 400 mg 07/24/24 17:00 Docusate Sodium 400 Mg/400 Ml Enema RECTAL Q24H AUTUMN Sodium Chloride 1,000 mls @ 125 mls/hr 07/23/24 14:35 07/24/24 02:37 Normal Saline Iv IV CONT 125 mls/hr .Q8H AUTUMN Administration Piperacillin Sod/Tazobactam Sod 4.5 gm in 100 mls @ 200 mls/hr 07/23/24 21:00 07/24/24 03:06 Zosyn 4.5 Gm/Ns 100 Ml IVPB 200 mls/hr Q6H AUTUMN Administration Vancomycin HCl 1,500 mg in 500 mls @ 250 mls/hr 07/24/24 22:00 Vancomycin 1,500 Mg/Ns 500 Ml IVPB 07/24/24 23:59 ONCE ONE Vancomycin HCl 1,000 mg in 250 mls @ 250 mls/hr 07/24/24 10:00 Vancomycin 1,000 Mg/Ns 250 Ml IVPB Q12H AUTUMN Lactulose 20 gm 07/23/24 15:25 07/23/24 16:29 Lactulose 20 Gm/30 Ml Udc FEED TUBE 20 gm QAM AUTUMN Administration Magnesium Oxide 400 mg 07/24/24 09:00 Magnesium Oxide 400 Mg Tablet FEED TUBE DAILY [facility] Miscellaneous Information 1 each 07/24/24 00:01 Please Enter Patient Height And Weight For Medication Dosing XX 08/23/24 00:00 CLARIFY [facility] Morphine Sulfate 4 mg 07/23/24 14:34 07/23/24 22:37 Morphine Sulfate (*Crx) 4 Mg/Ml Inj IV PUSH 4 mg Q2H PRN Administration Pain Rated 7-10 Nitrofurantoin Macrocrystals 50 mg 07/24/24 09:00 Nitrofurantoin Macrocrystals 50 Mg Cap FEED TUBE DAILY [facility]UMN Nonformulary 0 each 07/23/24 17:47 Nutritional XX 07/24/24 17:46 Supplement PRN PRN Nonformulary Drug ( PROTOCOL Zinc Gluconate 50 Mg Tablet) Trazodone HCl 100 mg 07/23/24 21:00 07/23/24 21:51 Trazodone Hcl 50 Mg Tablet FEED TUBE 100 mg HS AUTUMN Administration Radiology Results: ITS Impressions Abdomen/Pelvis CT 07/23/24 12:18 IMPRESSION: 1. No evidence of diverticulitis, appendicitis or definite bowel obstruction. Possibility of embolus in the sigmoid colon cannot be excluded. Further evaluation advised. 2. Fecal impaction seen in the rectosigmoid area. 3. Large left pleural effusion with atelectasis of the left lower lobe and lingula. Deviation of the heart to the right is noted. 4. Nodule in the right lower lobe measuring 1.[address] follow-up advised Dr. Duenas was notified with the result of the patient at 12:46 PM on July 23, 2024 Chest X-Ray 07/23/24 17:46 IMPRESSION: Large left pleural effusion. Left lung atelectasis. No pneumothorax detected. Labs Labs: Laboratory Results - last 24 hr 07/23/24 07/23/24 07/23/24 08:35 09:48 17:28 WBC 28.0 H RBC 3.79 L Hgb 10.2 L Hct 32.8 L MCV 86.5 MCH 26.9 MCHC 31.1 L RDW 14.3 Plt Count 427 H MPV 10.3 Immature Gran % (Auto) 1.8 H Neut % (Auto) 89.7 H Lymph % (Auto) 4.2 L [place] % (Auto) 3.9 Eos % (Auto) 0.2 Baso % (Auto) 0.2 Lymph # (Auto) 1.18 [place] # (Auto) 1.1 H Eos # (Auto) 0.1 Baso # (Auto) 0.1 Abs Immat Gran (auto) 0.50 H Absolute Neuts (auto) 25.2 H Absolute Nucleated RBC 0.000 Total Counted Neutrophils % (Manual) Band Neutrophils % Lymphocytes % (Manual) Monocytes % (Manual) Nucleated RBC % 0.0 Abs Neuts (Manual) Abs Lymphs (Manual) Abs Monocytes (Manual) Platelet Estimate Anisocytosis Enterprise Cells Schistocytes PT 14.5 INR 1.1 APTT 27.1 Sodium 136 L Potassium 4.0 Chloride 101 Carbon Dioxide 25 Anion Gap 10 BUN 16 Creatinine 0.31 L Estim Creat Clear Calc Not Reportable Estimated GFR > 60 Glucose 160 H POC Capillary Glucose Lactic Acid 1.9 Calcium 8.4 Phosphorus 2.7 Magnesium Total Bilirubin 0.8 AST 57 H ALT 79 H Alkaline Phosphatase 346 H C-Reactive Protein 26.9 H Total Protein 7.0 Albumin 3.1 L Amylase 80 Lipase 148 Urine Color Dark yellow Urine Appearance Clear Urine pH 7.5 Ur Specific [place] > 1.045 H Urine Protein 2+ H Urine Glucose (UA) Negative Urine Ketones Negative Ur Blood (Man) Negative Urine Nitrate Negative Urine Bilirubin Negative Urine Urobilinogen 1.0 Add Ur Microanalysis Reviewed Leukocyte Esterase Rfl Negative Urine RBC 6-10 H Urine WBC 0-5 Ur Squamous Epith Cells Few Urine Bacteria None seen Urine Casts 0-2 Pleural Fluid Source Pleural fluid Pleural Color Yellow Pleural Appearance Cloudy Pleural pH Pleural RBC TNP Pleural Nuc Cells TNP Pleural Neutrophils 85 H Pleural Lymphocytes 4 Pleural Monocytes 5 Pleural Macrophages 6 Pleural Mesothelial 0 Nasal MRSA (PCR) 07/23/24 07/23/24 07/23/24 17:46 17:58 22:47 WBC RBC Hgb Hct MCV MCH MCHC RDW Plt Count MPV Immature Gran % (Auto) Neut % (Auto) Lymph % (Auto) [place] % (Auto) Eos % (Auto) Baso % (Auto) Lymph # (Auto) [place] # (Auto) Eos # (Auto) Baso # (Auto) Abs Immat Gran (auto) Absolute Neuts (auto) Absolute Nucleated RBC Total Counted Neutrophils % (Manual) Band Neutrophils % Lymphocytes % (Manual) Monocytes % (Manual) Nucleated RBC % Abs Neuts (Manual) Abs Lymphs (Manual) Abs Monocytes (Manual) Platelet Estimate Anisocytosis [place] Cells Schistocytes PT INR APTT Sodium Potassium Chloride Carbon Dioxide Anion Gap BUN Creatinine Estim Creat Clear Calc Estimated GFR Glucose POC Capillary Glucose 102 Lactic Acid Calcium Phosphorus Magnesium Total Bilirubin AST ALT Alkaline Phosphatase C-Reactive Protein Total Protein Albumin Amylase Lipase Urine Color Urine Appearance Urine pH Ur Specific [place] Urine Protein Urine Glucose (UA) Urine Ketones Ur Blood (Man) Urine Nitrate Urine Bilirubin Urine Urobilinogen Add Ur Microanalysis Leukocyte Esterase Rfl Urine RBC Urine WBC Ur Squamous Epith Cells Urine Bacteria Urine Casts Pleural Fluid Source Pleural Color Pleural Appearance Pleural pH < 7.000 L Pleural RBC Pleural Nuc Cells Pleural Neutrophils Pleural Lymphocytes Pleural Monocytes Pleural Macrophages Pleural Mesothelial Nasal MRSA (PCR) Not detected 07/24/24 05:39 WBC 28.9 H RBC 3.03 L Hgb 8.1 L Hct 26.9 L MCV 88.8 MCH 26.7 MCHC 30.1 L RDW 14.9 H Plt Count 377 H MPV 10.6 H Immature Gran % (Auto) Not Reportable Neut % (Auto) Not Reportable Lymph % (Auto) Not Reportable [place] % (Auto) Not Reportable Eos % (Auto) Not Reportable Baso % (Auto) Not Reportable Lymph # (Auto) Not Reportable [place] # (Auto) Not Reportable Eos # (Auto) Not Reportable Baso # (Auto) Not Reportable Abs Immat Gran (auto) Not Reportable Absolute Neuts (auto) Not Reportable Absolute Nucleated RBC Not Reportable Total Counted 100 Neutrophils % (Manual) 83 H Band Neutrophils % 9 H Lymphocytes % (Manual) 6 L Monocytes % (Manual) 2 L Nucleated RBC % Not Reportable Abs Neuts (Manual) 26.58 H Abs Lymphs (Manual) 1.73 Abs Monocytes (Manual) 0.57 Platelet Estimate Adequate Anisocytosis 1+ [place] Cells 1+ Schistocytes None seen PT 16.1 H INR 1.3 APTT 27.2 Sodium 138 Potassium 3.4 Chloride 109 H Carbon Dioxide 20 L Anion Gap 9 BUN 11 D Creatinine 0.50 L Estim Creat Clear Calc 96 Estimated GFR > 60 Glucose 94 POC Capillary Glucose Lactic Acid 0.9 Calcium 7.6 L Phosphorus Magnesium 2.2 Total Bilirubin 1.1 AST 33 ALT 55 H Alkaline Phosphatase 259 H C-Reactive Protein 30.2 H Total Protein 6.0 L Albumin 2.5 L Amylase Lipase Urine Color Urine Appearance Urine pH Ur Specific [place] Urine Protein Urine Glucose (UA) Urine Ketones Ur Blood (Man) Urine Nitrate Urine Bilirubin Urine Urobilinogen Add Ur Microanalysis Leukocyte Esterase Rfl Urine RBC Urine WBC Ur Squamous Epith Cells Urine Bacteria Urine Casts Pleural Fluid Source Pleural Color Pleural Appearance Pleural pH Pleural RBC Pleural Nuc Cells Pleural Neutrophils Pleural Lymphocytes Pleural Monocytes Pleural Macrophages Pleural Mesothelial Nasal MRSA (PCR) Quality VTE Prophylaxis VTE prophylaxis: mechanical ordered
[2024-07-24 08:00] VITALS: BP 107/54; PULSE 98; RESP 18; TEMP 36.4; O2SAT 91
[2024-07-24] MEDS: VANCOMYCIN 1,500 MG/NS 500 ML 1,500 MG/500 ML BAG 250 MG IVPB (08:26)
[2024-07-24] MEDS: NITROFURANTOIN MACROCRYSTALS 50 MG CAP FEED TUBE (08:29)
[2024-07-24] MEDS: ASCORBIC ACID 500 MG TABLET FEED TUBE (08:29)
[2024-07-24] MEDS: MAGNESIUM OXIDE 400 MG TABLET FEED TUBE (08:29)
[2024-07-24] MEDS: LACTULOSE 20 GM/30 ML UDC FEED TUBE (08:44)
[2024-07-24 11:11] LABS: Glucose Point of Care 95 mg/dl (65-105)
--- NOTE | 2024-07-24 11:37 | PM.CNGS ---
Assessment and Plan Assessment and plan (1) Fecal impaction: Code(s): K56.41 - Fecal impaction Status: Acute Assessment and Plan: Patient presented for evaluation of fever and abdominal distention. She has [place]'s disease and deals with chronic constipation. CT scan of the abdomen and pelvis showed a fecal impaction and suggested a possible sigmoid volvulus. There are no signs of an obstruction. She actually had a large bowel movement during my exam today. Her abdominal exam is benign and her abdominal distention has improved. Her leukocytosis and sepsis appears to be related to the empyema. Pulmonology was consulted regarding this issue and is recommending transfer to a tertiary care facility. The family is also discussing the option of Hospice. We would recommend to continue treating the fecal impaction with enemas as needed and adjusting her bowel regimen, but her more acute issue is the empyema. We will sign off at this time. Call with any future surgical questions or concerns. (2) Abnormal CT of the abdomen: Code(s): R93.5 - Abnormal findings on diagnostic imaging of other abdominal regions, including retroperitoneum Status: Acute (3) Empyema of left pleural space: Code(s): J86.9 - Pyothorax without fistula Status: Acute (4) [place]'s disease: Code(s): G10 - [place]'s disease Status: Chronic (5) Sepsis: Code(s): A41.9 - Sepsis, unspecified organism Status: Acute (6) Gastrostomy tube dependent: Code(s): Z93.1 - Gastrostomy status Status: Chronic Plan I have discussed the patient's case and plan of care with Dr. Mckinney. History of Present Illness Consult details Consult date: 07/24/24 Reason for consult: other (Possible volvulus) Requesting physician: Siobhan Duenas MD Narrative: This is a 58-year-old woman with PMH of [place]'s with gastrostomy tube in place, chronic constipation, and is nonverbal, who we have been asked to see in surgical consultation for possible sigmoid volvulus. She resides at home with her who is the primary caregiver. He helps assist in providing history, but this is also obtained by review of the EMR. She was brought into the ED yesterday due to 2 weeks a low-grade fever and concern of abdominal distension. Her pays close attention to her bowel movements. He gets her MiraLax daily through her gastrostomy tube and monitors her bowel function. He states that typically she will have a bowel movement when he lays her on her side and at times massages her abdomen. He felt like her abdomen was more distended over the past few days, which intermittently gets distended and then improves after passing flatus or stool. He was giving her MiraLax and she did have a large bowel movement both Wednesday and Wednesday. He denies to me that he does any disimpaction sat home. She has appeared more flushed as well in the face, but otherwise no other specific complaints. He reports she appeared uncomfortable and was restless. Workup in the ED showed labs significant for WBC count of 28,000, lactic acid 1.9, AST 57, ALT 79, alk-phos 346, CRP 26.9. She was tachycardic and tachypneic, as well as hypertensive. Chest x-ray showed a left pleural effusion with adjacent atelectasis versus pneumonia. CT scan of the abdomen and pelvis showed a large left pleural effusion with atelectasis, fecal impaction in the rectal sigmoid area with suggestion that a possible sigmoid volvulus is not excluded but less likely. She was admitted to the hospitalist service. She was started on IV Zosyn. Labs [place] [id number]. She had a thoracentesis with Gram stain of the pleural fluid showing Gram-positive cocci and moderate wbc's. Pulmonology also consulted and recommending transfer to a tertiary care facility for an empyema. [facility] Past Medical History Medical History (Updated 07/24/24 @ 14:23 by FRANECS Aden) Constipation Community acquired pneumonia Sepsis History of Molly's chorea Surgical History Surgical History History of gastrostomy tube placement Approximately 2018 History of endometrial ablation Family History Family History Mother No problems noted. Other Family history of [place]'s chorea Social History Social History Smoking status: Never smoker Second hand tobacco smoke exposure: No Alcohol intake: never Substance use: never Substance use type: does not use Do You Feel Safe in your Home?: No Lack of Transportation: No Lack of Food: Never True Current Housing: I Have Housing Concerned About Future Housing: No Difficulty Paying Gas/Electric Bills: No Difficulty Paying for Meds: No Currently Unemployed: No Education: Decline to Answer Difficulty w/ Childcare or Family Care: No Living arrangements: with family Gender identity (if verbalized by the patient): Female Spiritual care concerns: No Meds Home Medications and Allergies Home Medications ?Medication ?Instructions ?Recorded ?Confirmed ?Type zinc gluconate 50 mg tablet 50 mg PO QID #360 tabs 01/29/22 07/23/24 Rx Nutritional Supplement #1 ea 08/21/22 07/23/24 Rx ascorbate calcium (vitamin C) 500 500 mg feeding tube DAILY 03/26/23 07/23/24 History mg tablet magnesium 200 mg tablet 400 mg feeding tube DAILY 03/26/23 07/23/24 History polyethylene glycol 3350 17 17 g feeding tube DAILY 03/26/23 07/23/24 History gram/dose oral powder (Miralax) 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/23 07/23/24 Rx capsule UTI #90 caps potassium chloride 20 mEq/15 mL 20 meq (15 mL) PO BID #3,800 mL 04/14/24 07/23/24 Rx oral liquid trazodone 100 mg tablet 100 mg feeding tube HS 07/23/24 07/23/24 History Allergies Allergy/AdvReac Type Severity Reaction Status Date / Time No Known Allergies Allergy Verified 07/23/24 16:56 Vital Signs Vital Signs - 24 hr 07/23/24 11:47 07/23/24 12:03 07/23/24 12:06 Temperature Pulse Rate 119 H 116 H 118 H Respiratory Rate 23 H 29 H 26 H Blood Pressure 147/121 H Pulse Oximetry Oxygen Delivery 07/23/24 12:15 07/23/24 12:30 07/23/24 12:46 Temperature Pulse Rate 114 H 113 H 117 H Respiratory Rate 32 H 30 H 31 H Blood Pressure Pulse Oximetry Oxygen Delivery 07/23/24 13:02 07/23/24 13:30 07/23/24 13:31 Temperature Pulse Rate 120 H 126 H 123 H Respiratory Rate 38 H 28 H 26 H Blood Pressure Pulse Oximetry Oxygen Delivery 07/23/24 13:45 07/23/24 14:00 07/23/24 14:04 Temperature Pulse Rate 125 H 126 H 121 H Respiratory Rate 31 H 29 H 26 H Blood Pressure 142/117 H Pulse Oximetry Oxygen Delivery 07/23/24 14:15 07/23/24 14:31 07/23/24 14:32 Temperature Pulse Rate 120 H 121 H 121 H Respiratory Rate 22 H 19 25 H Blood Pressure 189/151 H Pulse Oximetry 93 95 93 Oxygen Delivery 07/23/24 14:46 07/23/24 15:00 07/23/24 15:02 Temperature Pulse Rate 122 H 121 H 122 H Respiratory Rate 19 34 H 26 H Blood Pressure 188/171 H Pulse Oximetry 95 95 91 Oxygen Delivery 07/23/24 15:30 07/23/24 18:02 07/23/24 20:00 Temperature 98.8 F Pulse Rate 118 H 71 Respiratory Rate 16 20 Blood Pressure 128/97 H 117/92 H Pulse Oximetry 96 95 Oxygen Delivery Room Air 07/24/24 04:00 07/24/24 08:00 07/24/24 08:00 Temperature 98.6 F 97.5 F L Pulse Rate 79 98 Respiratory Rate 20 18 Blood Pressure 145/69 H 107/54 L Pulse Oximetry 93 91 Oxygen Delivery Room Air Results Labs 07/24/24 05:39 07/24/24 05:39 Labs: Abnormal lab results 07/23/24 07/23/24 07/23/24 Range/Units 08:35 17:28 17:46 WBC (4.5-10.0) K/mm3 RBC (4.2-5.4) M/mm3 Hgb (12.0-15.0) g/dL Hct (37.0-47.0) % MCHC (32-36) g/dl RDW (11.5-14.5) % Plt Count (150-375) k/mm3 MPV (7.4-10.4) fl Neutrophils % (Manual) (46-73) % Band Neutrophils % (0-6) % Lymphocytes % (Manual) (18-44) % Monocytes % (Manual) (3-9) % Abs Neuts (Manual) (1.7-7.2) K/mm3 PT (11.1-14.7) Seconds Chloride (98-107) mmol/L Carbon Dioxide (22-30) mmol/L Creatinine (0.7-1.0) mg/dL Calcium (8.4-10.2) mg/dL ALT (6-35) U/L Alkaline Phosphatase (38-126) U/L C-Reactive Protein (<1.0) mg/dL Total Protein (6.3-8.2) g/dL Albumin (3.5-5.1) g/dL Ur Specific [place] > 1.045 H (1.001-1.035) Urine Protein 2+ H (Negative) mg/dL Urine RBC 6-10 H (0-2) /hpf Pleural pH < 7.000 L (7.210-7.500) Pleural Neutrophils 85 H (0-25) % 05/05/25 Range/Units 05:39 WBC 28.9 H (4.5-10.0) K/mm3 RBC 3.03 L (4.2-5.4) M/mm3 Hgb 8.1 L (12.0-15.0) g/dL Hct 26.9 L (37.0-47.0) % MCHC 30.1 L (32-36) g/dl RDW 14.9 H (11.5-14.5) % Plt Count 377 H (150-375) k/mm3 MPV 10.6 H (7.4-10.4) fl Neutrophils % (Manual) 83 H (46-73) % Band Neutrophils % 9 H (0-6) % Lymphocytes % (Manual) 6 L (18-44) % Monocytes % (Manual) 2 L (3-9) % Abs Neuts (Manual) 26.58 H (1.7-7.2) K/mm3 PT 16.1 H (11.1-14.7) Seconds Chloride 109 H (98-107) mmol/L Carbon Dioxide 20 L (22-30) mmol/L Creatinine 0.50 L (0.7-1.0) mg/dL Calcium 7.6 L (8.4-10.2) mg/dL ALT 55 H (6-35) U/L Alkaline Phosphatase 259 H (38-126) U/L C-Reactive Protein 30.2 H (<1.0) mg/dL Total Protein 6.0 L (6.3-8.2) g/dL Albumin 2.5 L (3.5-5.1) g/dL Ur Specific [place] (1.001-1.035) Urine Protein (Negative) mg/dL Urine RBC (0-2) /hpf Pleural pH (7.210-7.500) Pleural Neutrophils (0-25) % Diabetes panel 07/24/24 Range/Units 05:39 Sodium 138 (137-145) mmol/L Potassium 3.4 (3.4-5.0) mmol/L Chloride 109 H (98-107) mmol/L Carbon Dioxide 20 L (22-30) mmol/L BUN 11 D (7-17) mg/dL Creatinine 0.50 L (0.7-1.0) mg/dL Glucose 94 (65-110) mg/dL Calcium 7.6 L (8.4-10.2) mg/dL AST 33 (14-36) U/L ALT 55 H (6-35) U/L Alkaline Phosphatase 259 H (38-126) U/L Total Protein 6.0 L (6.3-8.2) g/dL Albumin 2.5 L (3.5-5.1) g/dL Calcium panel 07/23/24 07/24/24 Range/Units 09:48 05:39 Calcium 7.6 L (8.4-10.2) mg/dL Phosphorus 2.7 (2.5-4.5) mg/dL Albumin 2.5 L (3.5-5.1) g/dL Pituitary panel 07/24/24 Range/Units 05:39 Sodium 138 (137-145) mmol/L Potassium 3.4 (3.4-5.0) mmol/L Chloride 109 H (98-107) mmol/L Carbon Dioxide 20 L (22-30) mmol/L BUN 11 D (7-17) mg/dL Creatinine 0.50 L (0.7-1.0) mg/dL Glucose 94 (65-110) mg/dL Calcium 7.6 L (8.4-10.2) mg/dL Adrenal panel 07/24/24 Range/Units 05:39 Sodium 138 (137-145) mmol/L Potassium 3.4 (3.4-5.0) mmol/L Chloride 109 H (98-107) mmol/L Carbon Dioxide 20 L (22-30) mmol/L BUN 11 D (7-17) mg/dL Creatinine 0.50 L (0.7-1.0) mg/dL Glucose 94 (65-110) mg/dL Calcium 7.6 L (8.4-10.2) mg/dL Total Bilirubin 1.1 (0.2-1.3) mg/dL AST 33 (14-36) U/L ALT 55 H (6-35) U/L Alkaline Phosphatase 259 H (38-126) U/L Total Protein 6.0 L (6.3-8.2) g/dL Albumin 2.5 L (3.5-5.1) g/dL All other labs normal.
[2024-07-24] MEDS: AZITHROMYCIN 500 MG/NS 250 ML 500 MG/250 ML BAG 250 MG IVPB (11:51)
[2024-07-24 12:00] VITALS: BP 139/103; PULSE 104; RESP 20; TEMP 36.2; O2SAT 91
[2024-07-24 12:10] VITALS: BMI 21.8
--- NOTE | 2024-07-24 12:28 | PCDIET ---
Tube feeding Recommendations. Equivalent tube feeding formula for Nutren 1.5 in stock here is Osmolite 1.5. Can be used and administered via home regimen (250ml Bolus BID with 200ml flushes, plus an additional 500ml administered at night, 30ml/hr with 40ml/hr flush) or changed to a continuous rate of 45ml/hr, 40ml flush/hr to provide equivalent nutrient intake. *May consider trying Jevity 1.5 for increased fiber to help with bowel function.
[2024-07-24] MEDS: levoFLOXacin 750 MG/D5W 150 ML 750 MG/150 ML BAG 100 MG IVPB (13:32)
[2024-07-24] MEDS: SACCHAROMYCES BOULARDII 250 MG CAPSULE PO (13:32)
--- NOTE | 2024-07-24 13:34 | P.CONPL_ITS ---
Assessment and Plan Assessment and plan (1) Empyema of left pleural space: Code(s): J86.9 - Pyothorax without fistula Status: Acute Assessment and Plan: patient with a large complex left pleural effusion with Gram-positive cocci on the Gram stain and a pH of less than 7.00. This is an empyema. Plan: I explained to the that antibiotics alone would not cure or the empyema. I discussed with him options of chest tube drainage which I thought was unlikely to cure the patient, vats procedure and thoracotomy. I explained to him that the patient would need to be referred to a higher level of care facility as these procedures cannot be performed at [facility]. I explained to him that this would not alter her underlying Molly's disease and that a thoracic surgeon would need to determine if they felt the patient could survive such procedures. I also presented him comfort measures with hospice consultation. The patient told me he would discuss this with his children and that the healthcare team know his final decision. In the meantime patient should be placed on Zosyn, Levaquin and vancomycin. Discussed with Dr. Pritchard who would arrange for transfer if this with the family's wishes, will sign off, call with questions. History of Present Illness History of Present Illness Consult date: 07/24/24 Chief complaint: PNEUMONIA,LARGE LEFT PLEURAL EFFUSION,CONSTIPATION Narrative: 07/24/2024: This is a new pulmonary consult for empyema. 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 Patient found to have a white blood cell count of 28.0, chest x-ray with a large left pleural effusion occupying the left hemithorax and a CT scan of the chest that showed a large left pleural effusion and fecal impaction. Patient was started on Zosyn. Patient had a thoracentesis on 07/24/2024 demonstrating a complex effusion with multiple internal septations on ultrasound. 250 mL of yellow green fluid was removed and the Gram stain showed moderate white blood cells and few Gram- positive cocci with a pH of 7.00. 07/23/24: EXAMINATION: US thoracentesis DATE: 07/23/2024 18:28 INDICATION: Left pleural effusion TECHNIQUE: The procedure and its risks and benefits were discussed with the patient. Potential risks discussed included bleeding, infection, and pneumothorax. The patient understood the risks and agreed to proceed. The skin was prepped and draped in sterile fashion. 1% lidocaine was used for local anesthesia. Under ultrasound guidance, a 5 Fr catheter with trochar was advanced into the left pleural effusion. Fluid was aspirated. The catheter was removed, and a dressing was applied. There were no immediate complications. FINDINGS: Ultrasound images demonstrate a large complex left pleural effusion and the catheter within the fluid and multiple internal septations. IMPRESSION: 1. Successful ultrasound-guided thoracentesis yielding 250 mL of yellowish fluid. 07/23/24: EXAMINATION: [id number] Exam Date/Time: 07/23/2024 17:20 CDT HISTORY: POST THORACENTESIS Comparison: CT abdomen pelvis, same date; x-ray chest same date at 10:23 AM. RESULT: Lines, tubes, and devices: None. Lungs and pleura: Opacification of the left hemithorax with shift of the mediastinum to the right. Nodular opacity seen in the right lower lobe in the prior CT are not well seen radiographically. Cardiomediastinal silhouette: Stable. Other: No acute osseous or upper abdominal finding. IMPRESSION: Large left pleural effusion. Left lung atelectasis. No pneumothorax detected. 07/23/24: CT abdomen pelvis w con Ordering provider: Siobhan Duenas MD History: 58 years Female with . Abdominal pain, distension . Comparison: February 16, 2020 Technique: CT abdomen and pelvis with IV and without oral contrast. Automated exposure control and iterative reconstruction technique were employed. The dose- length product was 540.60 mGy-cm. 100 mL Omnipaque 350 was given IV. Findings: VISUALIZED LOWER CHEST: A large left pleural effusion with atelectatic changes in the lung and elevation of the heart to the right are noted. Nodule in the right lower lobe laterally is seen measuring 1.4 cm. 3 months follow-up CT is advised. UPPER ABDOMINAL ORGANS: Liver: Normal. Gallbladder: Not well demonstrated. Spleen: Normal. Stomach/duodenum: Gastrostomy is seen in the stomach. Air is distending the stomach. Pancreas: Normal. Adrenals: Normal. Kidneys: Normal. PELVIC ORGANS: The bladder shows thickened wall. Evaluation for cystitis advised. BOWEL AND MESENTERY: Colon: No evidence of diverticulitis. Significant fecal material is seen in the rectosigmoid area.. Distention of the colon with gases is noted more prominent in the sigmoid colon and the right side of the colon. Possibility of volvulus of the sigmoid colon cannot be excluded although less likely. Further evaluation advised..Appendix is not demonstrated. Small Bowel: Normal. No obstruction. Peritoneum/mesentery: No free air or free fluid. No mesenteric lymphadenopathy. RETROPERITONEUM: Normal aorta. No retroperitoneal lymphadenopathy. MUSCULOSKELETAL: Superficial soft tissues: The superficial soft tissues are normal. Bones: Age appropriate degenerative changes of the spine. Bilateral hip osteoarthritic changes. IMPRESSION: 1. No evidence of diverticulitis, appendicitis or definite bowel obstruction. Possibility of embolus in the sigmoid colon cannot be excluded. Further evaluation advised. 2. Fecal impaction seen in the rectosigmoid area. 3. Large left pleural effusion with atelectasis of the left lower lobe and lingula. Deviation of the heart to the right is noted. 4. Nodule in the right lower lobe measuring 1.[address] follow-up advised Review of Systems 2 Review of Systems: ROS unobtainable: Yes unobtainable due to medical condition and unobtainable due to mental status PMF Past Medical History Medical History (Updated 07/24/24 @ 13:39 by Elder Stern MD) Constipation Community acquired pneumonia Sepsis History of Comfort's chorea Surgical History Surgical History History of gastrostomy tube placement Approximately 2018 History of endometrial ablation Family History Family History Mother No problems noted. Other Family history of Comfort's chorea Social History Social History Smoking status: Never smoker Second hand tobacco smoke exposure: No Alcohol intake: never Substance use: never Substance use type: does not use Do You Feel Safe in your Home?: No Lack of Transportation: No Lack of Food: Never True Current Housing: I Have Housing Concerned About Future Housing: No Difficulty Paying Gas/Electric Bills: No Difficulty Paying for Meds: No Currently Unemployed: No Education: Decline to Answer Difficulty w/ Childcare or Family Care: No Living arrangements: with family Gender identity (if verbalized by the patient): Female Spiritual care concerns: No Meds Home Medications and Allergies Home Medications ?Medication ?Instructions ?Recorded ?Confirmed ?Type zinc gluconate 50 mg tablet 50 mg PO QID #360 tabs 01/29/22 07/23/24 Rx Nutritional Supplement #1 ea 08/21/22 07/23/24 Rx ascorbate calcium (vitamin C) 500 500 mg feeding tube DAILY 03/26/23 07/23/24 History mg tablet magnesium 200 mg tablet 400 mg feeding tube DAILY 03/26/23 07/23/24 History polyethylene glycol 3350 17 17 g feeding tube DAILY 03/26/23 07/23/24 History gram/dose oral powder (Miralax) 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/23 07/23/24 Rx capsule UTI #90 caps potassium chloride 20 mEq/15 mL 20 meq (15 mL) PO BID #3,800 mL 04/14/24 07/23/24 Rx oral liquid trazodone 100 mg tablet 100 mg feeding tube HS 07/23/24 07/23/24 History Allergies Allergy/AdvReac Type Severity Reaction Status Date / Time No Known Allergies Allergy Verified 07/23/24 16:56 Vital Signs Vital Signs - 24 hr 07/23/24 13:45 07/23/24 14:00 07/23/24 14:04 Temperature Pulse Rate 125 H 126 H 121 H Respiratory Rate 31 H 29 H 26 H Blood Pressure 142/117 H Pulse Oximetry Oxygen Delivery 07/23/24 14:15 07/23/24 14:31 07/23/24 14:32 Temperature Pulse Rate 120 H 121 H 121 H Respiratory Rate 22 H 19 25 H Blood Pressure 189/151 H Pulse Oximetry 93 95 93 Oxygen Delivery 07/23/24 14:46 07/23/24 15:00 07/23/24 15:02 Temperature Pulse Rate 122 H 121 H 122 H Respiratory Rate 19 34 H 26 H Blood Pressure 188/171 H Pulse Oximetry 95 95 91 Oxygen Delivery 07/23/24 15:30 07/23/24 18:02 07/23/24 20:00 Temperature 37.1 C Pulse Rate 118 H 71 Respiratory Rate 16 20 Blood Pressure 128/97 H 117/92 H Pulse Oximetry 96 95 Oxygen Delivery Room Air 07/24/24 04:00 07/24/24 08:00 07/24/24 08:00 Temperature 37.0 C 36.4 C L Pulse Rate 79 98 Respiratory Rate 20 18 Blood Pressure 145/69 H 107/54 L Pulse Oximetry 93 91 Oxygen Delivery Room Air Exam 2 Narrative: In bed, contracted on room air. Const: Other: Nonverbal Resp: Other: absent breath sounds left lung, decreased breath sounds right lung. Cardio: Other: Tachycardic GI: Other: bowel sounds positive, peg in place. Neuro: Other: Nonverbal, no response to verbal commands. Contracted upper and lower extremities Results Laboratory Findings 07/24/24 05:39 07/24/24 05:39 ABG, PT/INR, D-dimer: PT/INR, D-dimer PT 16.1 Seconds (11.1-14.7) H 07/24/24 05:39 INR 1.3 07/24/24 05:39 Abnormal lab findings: Abnormal Labs 07/23/24 07/23/24 07/23/24 08:35 09:48 17:28 WBC 28.0 H RBC 3.79 L Hgb 10.2 L Hct 32.8 L MCHC 31.1 L RDW Plt Count 427 H MPV Immature Gran % (Auto) 1.8 H Neut % (Auto) 89.7 H Lymph % (Auto) 4.2 L [place] # (Auto) 1.1 H Abs Immat Gran (auto) 0.50 H Absolute Neuts (auto) 25.2 H Neutrophils % (Manual) Band Neutrophils % Lymphocytes % (Manual) Monocytes % (Manual) Abs Neuts (Manual) PT Sodium 136 L Chloride Carbon Dioxide Creatinine 0.31 L Glucose 160 H Calcium AST 57 H ALT 79 H Alkaline Phosphatase 346 H C-Reactive Protein 26.9 H Total Protein Albumin 3.1 L Ur Specific [place] > 1.045 H Urine Protein 2+ H Urine RBC 6-10 H Pleural pH Pleural Neutrophils 85 H 07/23/24 07/24/24 17:46 05:39 WBC 28.9 H RBC 3.03 L Hgb 8.1 L Hct 26.9 L MCHC 30.1 L RDW 14.9 H Plt Count 377 H MPV 10.6 H Immature Gran % (Auto) Neut % (Auto) Lymph % (Auto) [place] # (Auto) Abs Immat Gran (auto) Absolute Neuts (auto) Neutrophils % (Manual) 83 H Band Neutrophils % 9 H Lymphocytes % (Manual) 6 L Monocytes % (Manual) 2 L Abs Neuts (Manual) 26.58 H PT 16.1 H Sodium Chloride 109 H Carbon Dioxide 20 L Creatinine 0.50 L Glucose Calcium 7.6 L AST ALT 55 H Alkaline Phosphatase 259 H C-Reactive Protein 30.2 H Total Protein 6.0 L Albumin 2.5 L Ur Specific [place] Urine Protein Urine RBC Pleural pH < 7.000 L Pleural Neutrophils Diagnostic Findings Additional studies: ITS Impressions Chest X-Ray 07/23/24 10:33 IMPRESSION: Left pleural effusion with adjacent atelectasis versus pneumonia. Abdomen/Pelvis CT 07/23/24 12:18 IMPRESSION: 1. No evidence of diverticulitis, appendicitis or definite bowel obstruction. Possibility of embolus in the sigmoid colon cannot be excluded. Further evaluation advised. 2. Fecal impaction seen in the rectosigmoid area. 3. Large left pleural effusion with atelectasis of the left lower lobe and lingula. Deviation of the heart to the right is noted. 4. Nodule in the right lower lobe measuring 1.[address] follow-up advised Dr. Duenas was notified with the result of the patient at 12:46 PM on July 23, 2024 Chest X-Ray 07/23/24 17:46 IMPRESSION: Large left pleural effusion. Left lung atelectasis. No pneumothorax detected. Thoracentesis Ultrasound 07/24/24 08:22
--- NOTE | 2024-07-24 16:57 | PC.NURSE ---
After talking with instrument lens grinder and hospitalist, pt has decided to take pt home on hospice. Pt only wants IV fluids, morphine, trazodone, and zofran to be given. No labs, antibiotics, or enemas. Hospitalist, charge made aware; will pass info on to night RN
[2024-07-24 20:32] VITALS: BP 130/93; PULSE 99; RESP 24; TEMP 36.4; O2SAT 90
[2024-07-24] MEDS: traZODone HCL 50 MG TABLET 100 MG FEED TUBE (21:03)
[2024-07-24] MEDS: MORPHINE SULFATE (*CRX) 4 MG/ML INJ IV PUSH (21:03)
[2024-07-25] MEDS: MORPHINE SULFATE (*CRX) 4 MG/ML INJ IV PUSH ×2 (06:04→09:40)
[2024-07-25] MEDS: SODIUM CHLORIDE 0.9% IV 1,000 ML 125 ML IV CONT (06:05)
[2024-07-25 08:00] VITALS: BP 127/106; PULSE 97; RESP 20; TEMP 37; O2SAT 94
--- NOTE | 2024-07-25 11:07 | PCDIET ---
Pt remains NPO at this time, no tube feeding orders. Spouse has made the decision for comfort care and to proceed with hospice at this time.
[2024-07-25] MEDS: NEOMYCIN/POLYMYXIN/BACITRACIN OINTMENT PACKET 1 PACKET (12:50)
--- NOTE | 2024-07-25 12:52 | P.DS_ITS ---
DS: Admitting Diagnosis Discharge Date 07/25/2024 Admitting Diagnosis Abdominal Pain DS: Discharge Diagnosis Discharge Diagnosis (1) Sepsis: Code(s): A41.9 - Sepsis, unspecified organism Status: Acute Assessment and Plan: * as evidence by white blood cell count of 28.0, respiratory rate of 31, pulse of 125 and known source of infection being left lung * normal lactic acid at 1.9 * blood cultures pending x2 * Zosyn and Azithromycin * IV fluid bolus 30 milliliters/kilogram administered an ER and maintenance rate at 125 mL/hour continues. * Continue to monitor and trend vital signs and labs. (2) Community acquired pneumonia: Code(s): J18.9 - Pneumonia, unspecified organism Status: Acute Assessment and Plan: * As evidenced by chest x-ray showing left pleural effusion and adjacent atelectasis versus pneumonia as well as CT abdomen and pelvis that was extended through the chest showing a large left pleural effusion with atelec tasis left lower lobe with deviation of the heart to the right. * ER physician spoke with [employer] founder Dr. Coronel, who will be coming in to do a stat Thoracentesis. * Continuing sepsis protocol as noted in #1 * Continuing supportive care with monitoring of labs and VS. (3) Pleural effusion: Code(s): J90 - Pleural effusion, not elsewhere classified Status: Acute Assessment and Plan: * CXR: Large left pleural effusion. Left lung atelectasis. No pneumothorax detected. * [employer] Dr. Coronel consulted * Thoracentesis performed 07/24/2024 * Thoracentesis US: Successful ultrasound-guided thoracentesis yielding 250 mL of yellowish fluid. (4) Constipation: Code(s): K59.00 - Constipation, unspecified Status: Acute Assessment and Plan: * As evidenced by CT scan abd and pelvis. There is fecal impaction of the rectosigmoid area with possibility of embolus of the sigmoid colon that cannot be excluded. * ER physician spoke with Gen John Mckinney who advises nothing more to do than to clear the constipation. * Bowel regimen at home is daily clearlax and manual manipulation. * Will start bowel regimen here with colace enema daily until bowels are moving and Lactulose 20 G per tube daily until bowels are moving. 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 Resides in the care of her spouse at home. * Potential for caregiver stress. Consider Care coordination consult for possible placement. * At her baseline level of functioning which is full care. (6) Elevated liver enzymes: Code(s): R74.8 - Abnormal levels of other serum enzymes Status: Chronic Assessment and Plan: * Acute on chronic as compared to one year ago. * CT scan does not reflect any Cholecystic/Biliary tree pathology. * Transaminases are similar to what they have been previously when looking back. * If continued trending upward, consider US RUQ. 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 * Holding feedings at this time. (8) Recurrent UTI: Code(s): N39.0 - Urinary tract infection, site not specified Status: Chronic Assessment and Plan: * Secondary to underlying disease processes. * Continue Macrobid as prophylaxis. DS: Summary Hospital Course Hospital Course: This is a 58 year old female pt with hx of severe disability from [place]'s disease, who is nonverbal and who resides at her home with her spouse who is her primary child care group leader is brought to the ER by him for evaluation of two weeks of low grade temperatures and decreased bowel movements for the past two weeks with increasing abdominal distention and overall appearance of appearing more uncomfortable. Pt is tube fed through a G-tube with Nutron 1.5 and 2.0 bolus fed 250 ml BID with a 100 ml flush and then 500mg at HS at 30 ml/hr and free water flush of 40 ml hourly. Bowel regimen followed by spouse at home includes clearlax daily and manual disimpaction/manipulation. Pt's spouse denies any vomiting at home and admits he does travel for work and that there is a child care group leader who helps him by staying at the house when he cannot. In the ER, workup was initiated with labs and imaging. findings significant for white blood cell count of 28.0. Lactic acid was normal at 1.9. Urinalysis negative, new elevation to transaminases with AST noted to be elevated 57, ALT at 79 and CRP elevated at 26.9. Lipase is 148. Alk-phos is 346. Coags are normal with PT of 14.5, INR 1.1 and PTT of 27.1. Her VS show that she is tachycardic with Pulse in the 120s, tachypneic with respiratory rate in the 30s, and she is hypertensive. urinalysis is negative and lipase is normal at 148. Oxygen saturations are maintaining in the low 90s. Chest x-ray shows a left pleural effusion with adjacent atelectasis versus pneumonia. CT abdomen and pelvis showing a large left pleural effusion with atelectasis of the left lower lobe and deviation of the heart to the right. There is also fecal impaction in the rectal sigmoid area. There was concern for possibility of embolus in the sigmoid colon that cannot be excluded. Your physicians spoke with General surgery, Dr. Mckinney who advised that findings are consistent with constipation and impaction. Patient spoke with pulmonology Dr. Coronel, who will be coming to the bedside to do Thoracentesis of the very large effusion present. patient has empirically been started on Zosyn and She has been medicated for pain with morphine and IV fluids have been initiated. Patient is a do not resuscitate Patient takes prophylactic Macrobid for UTI prevention. She takes trazodone at night to assist with sleep. I assumed care 07/25/2024 (day of discharge) As per [employer] the pleural studies indicates empyema and patient need to be transferred to high level of care facility to perform VAT procedure and thoracotomy which cannot be performed at [facility]. Surgery evaluated the patient for abdominal distension. As per surgery abdominal exam is benign and her abdominal distention has been improved. Her leukocytosis possibly due to empyema. Hospice was consulted and patient is being discharged under hospice Status at Discharge Cognitive/behavioral status at discharge: Guarded Time Spent with Patient Time attestation: Total time spent providing and/or coordinating discharge services: 45 minutes Exam Const: General: uncomfortable Other: This 58-year-old female patient appears older than documented age appears uncomfortable laying on stretcher at this time. She is nonverbal, cannot give meaningful information about her current situation, and appears to be fidgeting. HENMT: Face/Nose/Sinus: Normal nares present Mouth: Yes dry mucous membranes Eyes: General: appearance normal, both eyes and all related structures Neck: Neck: supple and no JVD Resp: Effort & Inspection: abnormal respiratory effort ( Effort slightly increased) Auscultation: crackles, rales and diminished lung sounds Cardio: Rate: regular rate and tachycardic Rhythm: regular rhythm Heart sounds: no gallops, no murmurs and no rubs GI: Inspection: distended Auscultation: abnormal bowel sounds ( diminished throughout) Other: G-tube present in left upper quadrant Skin: General skin exam: normal color, no rashes or lesions noted, no erythema, No lesion and No rashes Lesions: no lesions noted Rashes: no rashes noted Wounds: no wounds Neuro: General: No gait normal ( patient does not ambulate) Speech: No normal speech ( patient is nonverbal) Motor exam (neuro): Abnormal motor strength present ( spasticity the upper extremities with contracture of the hands) and Motor abnormalites present choreoathetosis Extrem: General: normal exam except as noted Other: spasticity and contracture Psych: Other: unable to assess DS: Data Data Completed and Pending Completed studies during hospitalization: Pending at discharge 07/23/24 17:28 Cytology [PTH] Routine Labs on day of discharge: Preliminary micro results at discharge 07/23/24 17:28 Acid Fast Bacilli Culture - Preliminary Pleural Fluid 07/23/24 17:28 Anaerobic Culture - Preliminary Pleural Fluid Aerobic Culture - Preliminary Streptococcus intermedius 07/23/24 11:24 Blood Culture - Preliminary Blood 07/23/24 12:05 Blood Culture - Preliminary Blood Discharge Plan Discharge Attending physician on discharge: Carlos Tang Consulting providers: Aris Mckinney; Elder Stern Discharging Clinician: Carlos Tang Anticipated Discharge Date/Time: 07/25/24 12:57 Patient Disposition: Hospice - Home Activity: as tolerated Diet: as tolerated Discharge Instructions: Please follow hospice recommendation Patient Language: Lithuanian Stand Alone Forms: General Discharge Information Discharge Medications: Continued ascorbate calcium (vitamin C) 500 mg Tablet 500 mg feeding tube DAILY polyethylene glycol 3350 [Miralax] 17 gram/dose Powder 17 g feeding tube DAILY magnesium 200 mg Tablet 400 mg feeding tube DAILY trazodone 100 mg tablet 100 mg feeding tube HS Rx Instructions: TAKE 1 TABLET TWICE A DAY- Takes tablet at 1800 and 2200 zinc gluconate 50 mg tablet 50 mg PO QID Qty: 360 0RF (DME) Nutritional Supplement See Rx Instructions .Route .MEDSUPPLY Qty: 1 0RF Rx Instructions: Rx: Dispense 120 cartons of the Nutren 2.0 if the Nutren 1.5 is not available Pharmacy: [facility] (fax # [phone]) Physician: Dr. Kerry Roman DO nitrofurantoin macrocrystal 50 mg capsule 50 mg feeding tube DAILY Qty: 90 3RF Rx Instructions: TAKE 1 CAPSULE DAILY potassium chloride 20 mEq/15 mL liquid 20 meq PO BID Qty: 3800 1RF Date of admission: 07/23/24 14:55 Primary Care Provider: Kerry Roman Admitting Provider: Sarah Rocha Attending physician on admission: Benjamin Pritchard Condition: Serious
[2024-07-27 19:43] LABS: Glucose Pleural Fluid 15 mg/dL
[2024-07-28 15:34] LABS: Albumin Pleural Fluid 2.1 g/dL; Amylase, Pleural Fluid 34 U/L; LDH Pleural Fluid 1029 U/L; Total Protein Pleural Fluid 4.8 g/dL
== END 2024-07-25 13:10 | disposition hospice, home (50) | DRG 871 ==
LOC: ANHED 09:25 → ANH3MEDSUR 14:57
PROVIDERS: Nurse Practitioner Adult Health; Physician Assistant; Admitting Provider Internal Medicine; Emergency Provider Emergency Medicine; PCP Family Medicine; Visit Provider General Practice
DX: A41.9 Sepsis, unspecified organism (principal); J18.9 Pneumonia, unspecified organism; J86.9 Pyothorax without fistula; J90 Pleural effusion, not elsewhere classified; G10 Huntington's disease; N39.0 Urinary tract infection, site not specified; B95.5 Unspecified streptococcus as the cause of diseases classified elsewhere; I10 Essential (primary) hypertension; Z66 Do not resuscitate; Z93.1 Gastrostomy status; Z74.01 Bed confinement status
CPT/HCPCS: 32555; 36415; 36569; 71045; 74177; 80053; 81001; 82042; 82150; 82945; 82948; 83605; 83615; 83690; 83735; 83986; 84100; 84157; 84311; 84478; 85025; 85610; 85730; 86140; 87015; 87040; 87070; 87075; 87102; 87116; 87205; 87206; 87641; 88108; 88305; 89051; 93005; 96361; 96365; 96367; 96375; 96376; 99285; A9270; C1751; J0456; J1956; J2270; J2405; J2543; J3370; J7030; Q9967